=== PATIENT | female | born 1980 | race Caucasian/White ===

== ENCOUNTER → 2022-12-06 08:17 | Outpatient (CLI) | payer BC, SELFPAY ==
[2022-12-06 18:01] LABS: Thyroid Stimulating Hormone 0.99 uIU/mL (0.465-4.68)
== END ==
LOC: LAB.DROPOF 12-07 08:17
PROVIDERS: PCP Nurse Practitioner Family; Visit Provider Nurse Practitioner Family
DX: E03.9 Hypothyroidism, unspecified (principal); E66.9 Obesity, unspecified; Z68.41 Body mass index [BMI] 40.0-44.9, adult
CPT/HCPCS: 84443

== ENCOUNTER 2022-12-10 09:33 | Emergency (ER) | payer BC, SELFPAY ==
[2022-12-10 09:40] VITALS: BP 144/95; PULSE 76; RESP 20; TEMP 36.7; O2SAT 97; BMI 42.5
[2022-12-10 09:58] VITALS: BP 144/95; PULSE 76; RESP 20; TEMP 36.7; O2SAT 97
--- NOTE | 2022-12-10 10:12 | EXP.UTC ---
Discharge Plan Disposition Patient Disposition: Left Against Medical Advice Condition: Fair Prescriptions Prescriptions: No Action omeprazole 20 mg capsule,delayed release(DR/EC) 20 mg PO DAILY Qty: 30 2RF levothyroxine 100 mcg tablet 100 mcg PO DAILY 30 Days Qty: 30 1RF phentermine [Adipex-P] 37.5 mg tablet 37.5 mg PO DAILY Rx Instructions: must administer 30 minutes before or 1-2 hours after breakfast Clinical Impressions Clinical Impression: Left against medical advice Discharge ED Provider: Tfifany Lo [facility] [place] HPI General Stated complaint: upper abd pain Mode of Arrival: Ambulatory Source of Information: Patient Limitations: No Limitations Time Seen by Provider: 12/10/22 09:45 Description of Symptoms (Recalled from Triage Doc. by RN): PATIENT C/O PAIN TO BILATERAL RUQ THAT'S BEEN GOING ON FOR A FEW MONTHS. SHE STATES HER PCP STARTED HER ON OMEPRAZOLE BUT IT HAS NOT HELPED. SHE STATES THAT HER PCP SENT HER HERE TODAY FOR FURTHER WORKUP/IMAGING HEENT Symptoms (Recalled from RN notes): No Resp Symptoms (Recalled from RN notes): No Skin Symptoms (Recalled from RN notes): No MS Symptoms (Recalled from RN notes): No Functional Status (Recalled from RN notes): WNL History of Present Illness Provider Complaint: Patient states she has been having pain across her upper abdomen for several months States that she has seen her PCP several times and seen somewhere else that did an XRay States that they first thought it may be pancreatitis but her labs was normal, after the xray thought it may have been Diverticulitis but the pain went away and just recently started again and her PCP started her on Omeprazole that she has not been taking regularly due to she does not think it is an ulcer so last night the pain got worse and she called her PCP office and they told her to go to the ER for evaluation and imaging Related Data Home Medications Medication Instructions Recorded Confirmed phentermine 37.5 mg tablet 37.5 mg PO DAILY Weight Loss 12/10/22 12/10/22 (Adipex-P) Previous Rx's Medication Instructions Recorded levothyroxine 100 mcg tablet 100 mcg PO DAILY hypothyroidism 30 07/18/22 days #30 tabs omeprazole 20 mg capsule,delayed 20 mg PO DAILY GERD #30 caps 11/15/22 release Allergies Allergy/AdvReac Type Severity Reaction Status Date / Time sertraline AdvReac increased Verified 12/06/22 13:21 anxiety Worker's Comp Is this a Worker's Comp case?: No [facility] Disclaimer: The information contained in this section may have been updated after the patient was seen, as this information can be updated by other users. Medical History Fatty liver Hypothyroid Neck pain with history of cervical spinal surgery No significant past medical history Obesity Surgical History H/O shoulder surgery H/O spinal fusion History of appendectomy History of cholecystectomy Family History Grandmother Coronary artery disease Social History Smoking Status: Current every day smoker tobacco type: e-cigarettes alcohol intake: current substance use type: denies use current occupational status: employed Travel in the last 8 weeks: Inside the [place] household members: spouse and children housing: house ROS Obtained: Yes All systems reviewed & no additional complaints except as documented and Yes Systems reviewed as appropriate & no additional complaints except as documented Constitutional Constitutional: Reports system reviewed and no additional complaints, except as documented and Reports as per HPI Cardiovascular Cardiovascular: Reports system reviewed and no additional complaints, except as documented Respiratory Respiratory: Reports system reviewed and no additional complaints
== END 2022-12-10 10:00 | disposition left against medical advice (07) ==
PROVIDERS: Emergency Provider Nurse Practitioner; PCP Family Medicine
DX: R10.30 Lower abdominal pain, unspecified (principal); F17.290 Nicotine dependence, other tobacco product, uncomplicated; E03.9 Hypothyroidism, unspecified; E66.9 Obesity, unspecified; K76.0 Fatty (change of) liver, not elsewhere classified
CPT/HCPCS: 99211; G0463

== ENCOUNTER 2024-10-14 15:38 | Outpatient (CLI) | payer BC, SELFPAY ==
[2024-10-14 17:35] LABS: Hematocrit 39.5 % (37.0-47.0); Hemoglobin 13.9 g/dL (12.2-16.2); Immature Granulocytes % 0.2 %; Mean Corpuscular HGB Conc 35.2 g/dL (31.8-35.4); Mean Corpuscular Hemoglobin 31.2 pg (27.0-31.2); Mean Corpuscular Volume 88.6 fl (81-99); Nucleated Red Blood Cells % 0 %; Platelet Count 247 K/mm3 (142-424); Red Blood Count 4.46 M/mm3 (4.20-5.40); Red Cell Distribution Width-SD 37.2 fL; White Blood Count 6.6 K/mm3 (4.8-10.8)
[2024-10-14 18:15] LABS: Albumin Level 4.1 g/dl (3.5-5.0); Chloride 107 mmol/L (98-107); Potassium 3.7 mmoL/L (3.5-5.1); Sodium 137 mmol/L (136-145)
[2024-10-14 18:17] LABS: Blood Urea Nitrogen 12 mg/dl (7-17); Creatinine,Serum 0.70 mg/dl (0.52-1.04); Estimated Glomerular Filt Rate 90 ml/min (>60); GFR (African American) 109 ML/MIN (>60)
[2024-10-14 18:18] LABS: Alanine Aminotransferase 17 U/L (12-78); Albumin/Globulin Ratio 1.5 (1.1-1.8); Alkaline Phosphatase 65 U/L (38-126); Anion Gap 7.7 mEq/L (5-15); Aspartate Amino Transferase 26 U/L (14-36); Bilirubin,Total 0.5 mg/dl (0.2-1.3); Calcium 9.3 mg/dl (8.4-10.2); Carbon Dioxide 26 mmol/L (22.0-30.0); Globulin 2.7 g/dL (1.3-3.2); Glucose 102 mg/dl (74-100); Total Protein,Serum 6.8 g/dl (6.3-8.2)
[2024-10-14 18:24] LABS: C-Reactive Protein 1.0 mg/L (0-4)
[2024-10-14 19:04] LABS: 25-OH Vitamin D, Total 21.5 ng/mL (30-100)
[2024-10-14 19:07] LABS: Vitamin B12 314 pg/mL (239-931)
[2024-10-14 19:10] LABS: Triiodothryronine (T3) Uptake 34 % (23.5-40.5)
[2024-10-14 19:11] LABS: Free Thyroxine Index 3.0 ug/dL (5.93-13.13); T4 (Thyroxine) 8.7 ug/dl (5.53-11.0)
[2024-10-14 19:24] LABS: Thyroid Stimulating Hormone 1.99 uIU/mL (0.465-4.68)
--- OUTSIDE RECORDS SUMMARY | 2024-10-19 10:27 | XMS_ITS | Referral Summary ---
Author Organization [employer] ([place], [place], [place], [place]) Address [address] [place] [address] Care Team Providers Care Melter Supervisor Electric Arc Furnace Name Role Phone Pancho Lancaster MD Primary Care Provider [phone] Allergies Active Allergy Reactions Criticality Noted Date Comments Sertraline Anxiety Low 04/08/2017 palpitations Medications DULoxetine (CYMBALTA) 20 MG capsule Take 1 capsule (20 mg total) by mouth daily. 07/20/2022 Active levothyroxine (SYNTHROID, LEVOTHROID) 100 MCG tablet Take 1 tablet (100 mcg total) by mouth daily. 06/04/2023 Active Active Problems Problem Noted Date Diagnosed Date Greater trochanteric bursitis of left hip 2023 Sacroiliitis (HCC), Left 07/29/2023 Facet arthropathy, lumbar 07/29/2023 Femoral acetabular impingement, Left 07/29/2023 Social History Tobacco Use Types Packs/Day Years Used Date Smoking Tobacco: Every Day Smokeless Tobacco: Never Tobacco Cessation:Ready to Q uit: Not Asked; Counseling Given: Not Answered Comments:Pt vapes Passive Exposure Comments:vape Alcohol Use Standard Drinks/Week Comments Not Currently 0 (1 standard drink = 0.6 oz pur e alcohol) Family and Community Support Answer Mayo e Recorded Help with Day to Day Activities Not on file 03/08/2023 Feeling Lonely or Isolated Not on file 03/08 Educational Attainment Answer Date Evelio rded Speak language other than Tamazight at home Not on file 03/08/2023 Want help with school or training Not on file 03/08/2023 Substance Use Answer Date Recorded Used prescription meds for non-medical reasons N ot on file 03/08/2023 Used illegal drugs past 12 months Not on file 03/08/2023 Comments No Sex and Gender Information Value Date Recorded Sex Assigned at Not on file Legal Sex Female 12:33 PM CDT Gender Identity Not on file Sexual Orientation Not on file Last Filed Vital Signs Vital Sign Reading Time Taken Comments Blood Pressure 143/65 02/15/2024 9:21 AM EST Pulse 80 02/15/2024 9:21 AM EST Temperature 36.4 C (97.6 F) 02/15/2024 6:23 AM EST Respiratory Rate 16 02/15/2024 9:21 AM EST Oxygen Saturation 96% 02/15/2024 9:21 AM EST Inhaled Oxygen Concentration - - Weight 115.7 kg (255 lb) 02/15/2024 6:23 AM EST Height 167.6 cm (5' 6 ) 02/15/2024 6:23 AM EST Body Mass Index 41.16 02/15/2024 6:23 AM EST Plan of Treatment Not on file Insurance [id number] (Home) [address] [place] [id number] [facility] Care Teams Melter Supervisor Electric Arc Furnace Relationship Specialty Start Date End Date Pancho Lancaster MD [address] [place] [address] PCP - General Family Medicine 12/11/22
--- OUTSIDE RECORDS SUMMARY | 2024-10-19 10:27 | XMS_ITS | Clinical Summary ---
Author Organization [facility] Address [address] [id number] Care Team Providers Care Regional Marketing Manager Name Role Phone Natasha Nick Primary Care Provider [phone] Allergies Active Allergy Reactions Criticality Noted Date Comments Sertraline Anxiety Low 04/08/2017 palpitations palpitations palpitations Medications levothyroxine (SYNTHROID, LEVOTHROID) 100 MCG tablet Take 1 tablet by mouth Daily. Active phentermine (ADIPEX-P) 37.5 MG tablet TAKE 1 TABLET BY MOUTH EVERY DAY ADMINISTER 30 MINUTES BEFORE OR 1-2 HOURS AFTER BREAKFAST 4 Active Social History Tobacco Use Types Packs/Day Years Used Date Smoking Tobacco: Former Cigarettes 0.5 15 Tobacco Cessation:Counseling Given: Not Answered Alcohol Use Standard Drinks/Week Comments Yes 0 (1 standard drink = 0.6 oz pur e alcohol) Socially Comments Unknown Sex and Gender Information Value Date Recorded Sex Assigned at Not on file Legal Sex Female 1:36 PM EDT Gender Identity Not on file Sexual Orientation Not on file Last Filed Vital Signs Vital Sign Reading Time Taken Comments Blood Pressure - - Pulse - - Temperature 35.8 C (96.5 F) 01/08/2024 8:56 AM EST Respiratory Rate - - Oxygen Saturation - - Inhaled Oxygen Concentration - - Weight - - Height - - Body Mass Index - - Plan of Treatment Health Maintenance Due Date Last Done Comments Annual Gynecologic Pelvic and Breast Exam 1978 PAP SMEAR 09/08/1999 MAMMOGRAM 09/02/2020 09/02/2018 ANNUAL PHYSICAL 08/28/2023 HEPATITIS C SCREENING 08/28/2023 COLOGUARD 09/08/2023 COLON CANCER SCREENING 5 YEAR SIGMOIDOSCOPY 09/08/2023 COLONOSCOPY 09/08/2023 COLORECTAL CANCER SCREENING 09/08/2023 CT COLONOGRAPHY 09/08/2023 FECAL OCCULT BLOOD TEST 09/08/2023 FIT Testing (1 year) 09/08/2023 COVID-19 Vaccine ( season) 2023 06/21/2021, 07/10/2020, 06/19/2020 INFLUENZA VACCINE 11/17/2024 11/15/2022, , 12/28/2018, Additional history exists TDAP/TD VACCINES (3 - Td or Tdap) 07/29/2032 07/29/2022, 12/07/2015, 04/20/2003 Pneumococcal Vaccine 0-49 Aged Out No longer eligible based on patient's age to complete this topic Insurance PPO Care Teams Regional Marketing Manager Relationship Specialty Start Date End Date Natasha Nick PA [address] [place] [address] [address] [place] [id number] PCP - General Family Medicine 08/14/23
--- OUTSIDE RECORDS SUMMARY | 2024-10-19 10:27 | XMS_ITS | Clinical Summary ---
Author Organization [employer] ([place], [place], [place], [place]) Address [address] [place] [address] Care Team Providers Care Reverse Unit Operator Name Role Phone Pancho Lancaster MD Primary Care Provider [phone] Allergies Active Allergy Reactions Criticality Noted Date [...] Date Evelio rded Speak language other than Romanian at home Not on file 03/08/2023 Want [...] 02/15/2024 6:23 AM EST Plan of Treatment Health Maintenance Due Date Last Done Comments CT Colonography 1978 Colonoscopy 1978 Colorectal Cancer Screening 1978 FOBT/FIT 1978 Fit-DNA (Cologuard) 1978 Sigmoidoscopy 1978 Depression Screening (12+) 1990 Tobacco Cessation Counseling and Screening (12+) 1990 HIV Screening 1993 Hepatitis C Screening 1996 Pneumococcal Vaccine: 0-49 Y ears (1 of 2 - PCV) 1997 Pap Smear 09/08/1999 Breast Cancer Screening 09/02/2020 09/02/2018 COVID-19 VACCINE (5 - 2023-2 5 season) 2023 06/21/2021, 06/21/2021, 06/21/2021, Additional history exists Influenza Vaccine (#1) 2024 Lipid Panel 10/24/2024 10/24/2021 DTAP/TDAP/TD VACCINES (4 - T d or Tdap) 07/29/2032 07/29/2022, 12/07/2015, 04/20/2003 Insurance [employer]UE [employer]OSS/[employer] Care Teams Reverse Unit Operator Relationship Specialty Start Date End Date Pancho Lancaster MD [address] [place] [address] PCP - General Family Medicine 12/11/22
--- OUTSIDE RECORDS SUMMARY | 2024-10-19 10:27 | XMS_ITS | Clinical Summary ---
Author Organization Healthcare Address [facility] [address] [place] [id number] Care Team Providers Care Target Man Name Role Phone Natasha Nick Primary Care Provider Allergies Active Allergy Reactions Criticality Noted Date Comments Sertraline Anxiety Low 04/08/2017 palpitations palpitations Immunizations Immunization Administration Dates Next Due Hep B, adult 11/26/2021,04/20/2003 Influenza, injectable, quadrivalent 12/28/2018,0 03/24/2018 Influenza, injectable, quadr ivalent, preservative free 11/23/2021 Influenza, seasonal, injectable 12/28/2018,03/24,12/18/2016 Moderna COVID-19 Vaccine (Re d Cap) 12+ years 06/21/2021 PPD Skin Test (TB Skin Test) 04/20/2003 [employer] COVID-19 Vac cine (Purple Cap) 12+ 06/21/2021,07/10/2020,06/19/2020 Td (adult), unspecified 04/20/2003 Tdap 07/29/2022,12/07/2015 Social History Tobacco Use Types Packs/Day Years Used Date Smoking Tobacco: Never Assessed Comments Unknown Sex and Gender Information Value Date Recorded Sex Assigned at Not on file Legal Sex Female 1:37 PM EDT Gender Identity Not on file Sexual Orientation Not on file Plan of Treatment Health Maintenance Due Date Last Done Comments [facility]-Depression Screening 1978 [facility]-Infant/Child/Adol SDOH Screenings 1978 [facility]- SDOH Screenings 1996 [facility]-Adult SDOH Screenings 1996 [facility]-Pap Smear 09/08/1999 [facility]-Cervical Cancer Screening 2008 [facility]-HPV/Cotest 2008 [facility]-Hepatitis B Vaccines (3 of 3 - 19+ 3-dose series) 01/21/2022 11/26/2021, 04/20/2003 CT Colonography 09/08/2023 Colonoscopy 09/08/2023 FIT-DNA 09/08/2023 FIT 09/08/2023 FOBT 09/08/2023 Sigmoidoscopy 09/08/2023 [facility]-Colorectal Cancer Screening 09/08/2023 [id number] Vaccine (2023- season) 2023 06/21/2021, 06/21/2021, 07/10/2020, Additional history exists [facility]-Influenza Vaccine (#1) 10/18/202411/23, 12/28/2018, 12/28/2018, Additional history exists [facility]-Zoster Vaccines (1 of 2) 2028 [facility]-DTaP,Tdap,and Td Vaccines (3 - Td or Tdap) 07/29/2032 07/29/2022, 12/07/2015, 04/20/2003 HPV Vaccines Aged Out No longer eligi ble based on patient's age to complete this topic [facility]-HIB Vaccines Aged Out No longer e ligible based on patient's age to complete this topic [facility]-Hepatitis A Vaccines Aged Out No longer eligible based on patient's age to complete this topic [facility]-IPV Vaccines Aged Out No longer e ligible based on patient's age to complete this topic [facility]-Pneumococcal Vaccine: Pediatrics (0 to 5 Years) and At-Risk Patients (6 to 49 Years) Aged Out No longer eligible based on patient's age to complete this topic [facility]-Rotavirus Vaccines Aged Out No lo nger eligible based on patient's age to complete this topic Insurance MEME Care Teams Target Man Relationship Specialty Start Date End Date Natasha Nick PA [address] [place] [id number] PCP - General 05/22/22
== END 2024-10-14 23:59 ==
LOC: LAB.DROPOF 10-19 09:53
PROVIDERS: PCP Nurse Practitioner Family; Visit Provider Nurse Practitioner Family
DX: E03.9 Hypothyroidism, unspecified (principal); R53.83 Other fatigue
CPT/HCPCS: 80053; 82306; 82607; 84436; 84443; 84479; 85025; 86140

== ENCOUNTER 2024-10-26 15:01 | Outpatient (CLI) | payer BC, SELFPAY ==
--- OUTSIDE RECORDS SUMMARY | 2024-10-26 15:05 | XMS_ITS | Clinical Summary ---
Author Organization Healthcare Address [facility] [place] [id number] Care Team Providers Care Teletype Mechanic Name Role Phone Natasha Nick Primary Care Provider [phone] Allergies Active Allergy Reactions Criticality Noted Date Comments Sertraline Anxiety Low 04/08/2017 palpitations palpitations Immunizations Immunization Administration Dates Next Due Hep B, adult 11/26/2021,04/20/2003 Influenza, injectable, quadrivalent 12/28/2018,0 03/24/2018 Influenza, injectable, quadr ivalent, preservative free 11/23/2021 Influenza, seasonal, injectable 12/28/2018,03/24,12/18/2016 Moderna COVID-19 Vaccine (Re d Cap) 12+ years 06/21/2021 PPD Skin Test (TB Skin Test) 04/20/2003 [employer] COVID-19 Vac cine (Purple Cap) 12+ 06/21/2021,07/10/2020,06/19/2020 [...] 09/08/2023 Sigmoidoscopy 09/08/2023 [facility]-Colorectal Cancer Screening 09/08/2023 [id number] Vaccine (2023- season) 2023 06/21/2021, 06/21/2021, 07/10/2020, [...] complete this topic Insurance MEME Care Teams Teletype Mechanic Relationship Specialty Start Date End Date Natasha Nick PA [address] [place] [id number] PCP - General 05/22/22
--- OUTSIDE RECORDS SUMMARY | 2024-10-26 15:05 | XMS_ITS | Clinical Summary ---
Author Organization [facility] Address [address] [place] [address] Care Team Providers Care Automation Test Engineer Name Role Phone Natasha Nick Primary Care Provider [phone] Allergies Active Allergy Reactions Criticality Noted Date [...] Mass Index - - Plan of Treatment Upcoming Encounters Date Type Department Care Team (Late st Contact Info) Description 11/23/2024 11:15 AM EDT Office Visit [facility] [address] [place] [phone] Adriana Blackburn APRN [address] [place] [address] Health Maintenance Due Date Last Done Comments Annual Gynecologic Pelvic and Breast Exam 1978 PAP SMEAR 09/08/1999 MAMMOGRAM 09/02/2020 09/02/2018 ANNUAL PHYSICAL 08/28/2023 HEPATITIS C SCREENING 08/28/2023 COLOGUARD 09/08/2023 COLON CANCER SCREENING 5 YEAR SIGMOIDOSCOPY 09/08/2023 COLONOSCOPY 09/08/2023 COLORECTAL CANCER SCREENING 09/08/2023 CT COLONOGRAPHY 09/08/2023 FECAL OCCULT BLOOD TEST 09/08/2023 FIT Testing (1 year) 09/08/2023 COVID-19 Vaccine ( season) 2024 06/21/2021, 07/10/2020, 06/19/2020 INFLUENZA VACCINE 11/17/2024 11/15/2022, , 12/28/2018, Additional history exists TDAP/TD VACCINES (3 - Td or Tdap) 07/29/2032 07/29/2022, 12/07/2015, 04/20/2003 Pneumococcal Vaccine 0-49 Aged Out No longer eligible based on patient's age to complete this topic Procedures Procedure Name Priority Date/Time Associated Diagnosis Comments SCANNED - LABS 10/14/2024 from Last 3 Months Results * LABS SCANNED (10/14/2024) Pearl Herrera MD LAB BLOOD ORDERABLES Final R esult from Last 3 Months Insurance PPO Care Teams Automation Test Engineer Relationship Specialty Start Date End Date Natasha Nick PA [facility] [place] [address] PCP - General Family Medicine 08/14/23
--- NOTE | 2024-10-26 15:15 | MM_ITS ---
PROCEDURE INFORMATION: Exam: MG Bilateral Screening 3D Mammography Exam date and time: 10/26/2024 3:14 PM Age: 44 years old Clinical indication: Screening examination TECHNIQUE: Imaging protocol: Bilateral Screening tomosynthesis and 2D mammography including computer-aided detection (CAD) when performed. COMPARISON: No relevant prior studies available. FINDINGS: MAMMOGRAPHY: Breast composition: There are scattered areas of fibroglandular density. Mass: None. Architectural distortion: None. Calcifications: No suspicious calcifications. Asymmetric density: None. Skin thickening: None. Axillary adenopathy: None. IMPRESSION: No mammographic evidence of malignancy. Annual screening is recommended unless otherwise clinically indicated. ASSESSMENT: BI-RADS Category 1: Negative.
== END 2024-10-26 23:59 | disposition home or self-care (01) ==
LOC: RAD 15:02
PROVIDERS: PCP Family Medicine; Visit Provider Nurse Practitioner Family
DX: Z12.31 Encounter for screening mammogram for malignant neoplasm of breast (principal); R92.323 Mammographic fibroglandular density, bilateral breasts
CPT/HCPCS: 77063; 77067

== ENCOUNTER 2024-11-01 14:50 | Outpatient (CLI) | payer BC, SELFPAY ==
--- OUTSIDE RECORDS SUMMARY | 2024-11-01 14:56 | XMS_ITS | Clinical Summary ---
Author Organization [facility] Address [address] [place] [address] Care Team Providers Care Social Work Administrator Name Role Phone Natasha Nick Primary Care Provider [phone] Allergies Active Allergy Reactions Criticality Noted Date [...] Care Team (Late st Contact Info) Description 12/08/2024 2:00 PM EDT Office Visit [facility] [address] [place] [address] Adriana Blackburn, MICH [address] [place] [address] Health Maintenance Due Date Last [...] Last 3 Months Insurance PPO Care Teams Social Work Administrator Relationship Specialty Start Date End Date Natasha Nick PA [facility] [place] [address] PCP - General Family Medicine 08/14/23
--- OUTSIDE RECORDS SUMMARY | 2024-11-01 14:56 | XMS_ITS | Referral Summary ---
Author Organization [employer] ([place], [place], [place], [place]) Address [address] [place] [address] Care Team Providers Care Corn Cutter Name Role Phone Pancho Lancaster MD Primary Care Provider [phone] Allergies Active Allergy Reactions Criticality Noted Date [...] Date Evelio rded Speak language other than Indonesian at home Not on file 03/08/2023 Want [...] Plan of Treatment Not on file Insurance [id number] (Home) [address] [place] [id number] [facility]/[employer] Care Teams Corn Cutter Relationship Specialty Start Date End Date Pancho Lacnaster MD [address] [place] [address] PCP - General Family Medicine 12/11/22
--- OUTSIDE RECORDS SUMMARY | 2024-11-01 14:56 | XMS_ITS | Clinical Summary ---
Author Organization [employer] ([place], [place], [place], [place]) Address [address] [place] [address] Care Team Providers Care Boiler Assistant Operator Name Role Phone Pancho Lancaster MD Primary Care Provider [phone] Allergies Active Allergy Reactions Criticality Noted Date [...] Date Evelio rded Speak language other than Macanese at home Not on file 03/08/2023 Want [...] Screening 09/02/2020 09/02/2018 COVID-19 VACCINE (5 - 2024-2 6 season) 2024 06/21/2021, 06/21/2021, 06/21/2021, Additional history exists Influenza Vaccine (#1) 2024 Lipid Panel 10/24/2024 10/24/2021 DTAP/TDAP/TD VACCINES (4 - T d or Tdap) 07/29/2032 07/29/2022, 12/07/2015, 04/20/2003 Insurance BLUE CROSS/[employer]UE [employer]IELD Care Teams Boiler Assistant Operator Relationship Specialty Start Date End Date Pancho Lancaster MD [address] [place] [address] PCP - General Family Medicine 12/11/22
--- OUTSIDE RECORDS SUMMARY | 2024-11-01 14:56 | XMS_ITS | Clinical Summary ---
Author Organization Healthcare Address [facility] [address] [place] [id number] Care Team Providers Care Cracking Still Operator Name Role Phone Natasha Nick Primary Care [...] PPD Skin Test (TB Skin Test) 04/20/2003 [employer] [facility] COVID-19 Vac cine (Purple Cap) 12+ 06/21/2021,07/10/2020,06/19/2020 [...] Date Last Done Comments [facility]-Depression Screening 1978 [facility]-/Child/Adol SDOH Screenings 1978 [facility]- SDOH Screenings 1996 [facility]-Adult SDOH Screenings 1996 [facility]-Pap Smear 09/08/1999 [facility]-Cervical Cancer Screening 2008 [facility]-HPV/Cotest 2008 [facility]-Hepatitis B Vaccines (3 of 3 - 19+ 3-dose series) 01/21/2022 11/26/2021, 04/20/2003 CT Colonography 09/08/2023 Colonoscopy 09/08/2023 FIT-DNA 09/08/2023 FIT 09/08/2023 FOBT 09/08/2023 Sigmoidoscopy 09/08/2023 [facility]-Colorectal Cancer Screening 09/08/2023 [id number] Vaccine ( season) 2024 06/21/2021, 06/21/2021, 07/10/2020, Additional history exists [facility]-Influenza [...] complete this topic Insurance MEME Care Teams Cracking Still Operator Relationship Specialty Start Date End Date Natasha Nick PA [address] [place] [id number] PCP - General 05/22/22
== END 2024-11-01 23:59 | disposition home or self-care (01) ==
LOC: RT 14:52
PROVIDERS: PCP Family Medicine; Visit Provider Nurse Practitioner
DX: I49.3 Ventricular premature depolarization (principal); I49.1 Atrial premature depolarization; R60.9 Edema, unspecified; R53.83 Other fatigue
CPT/HCPCS: 93270

== ENCOUNTER 2024-11-18 10:25 | Outpatient (CLI) | payer BC, SELFPAY ==
--- OUTSIDE RECORDS SUMMARY | 2024-11-18 10:28 | XMS_ITS | Clinical Summary ---
Author Organization Healthcare Address [facility] [place] [id number] Care Team Providers Care Executive Officer Name Role Phone Natasha Nick Primary Care Provider [phone] Allergies Active Allergy Reactions Criticality Noted Date Comments Sertraline Anxiety Low 04/08/2017 palpitations palpitations Immunizations Immunization Administration Dates Next Due Hep B, adult 11/26/2021,04/20/2003 Influenza, injectable, quadrivalent 12/28/2018,0 03/24/2018 Influenza, injectable, quadr ivalent, preservative free 11/23/2021 Influenza, seasonal, injectable 12/28/2018,03/24,12/18/2016 Moderna COVID-19 Vaccine (Re d Cap) 12+ years 06/21/2021 PPD Skin Test (TB Skin Test) 04/20/2003 [facility] COVID-19 Vac cine (Purple Cap) 12+ 06/21/2021,07/10/2020,06/19/2020 [...] 09/08/2023 Sigmoidoscopy 09/08/2023 [facility]-Colorectal Cancer Screening 09/08/2023 [id number] Vaccine ( season) 2024 06/21/2021, 06/21/2021, 07/10/2020, [...] complete this topic Insurance MEME Care Teams Executive Officer Relationship Specialty Start Date End Date Natahsa Nick PA [address] [place] [id number] PCP - General 05/22/22
--- OUTSIDE RECORDS SUMMARY | 2024-11-18 10:28 | XMS_ITS | Clinical Summary ---
Author Organization [facility] Address [address] [place] [address] Care Team Providers Care Predictive Maintenance Specialist Name Role Phone Natasha Nick Primary Care Provider [phone] Allergies Active Allergy Reactions Criticality Noted Date [...] Description 12/08/2024 2:00 PM EDT Office Visit [facility] [address] [place] [phone] Adriana Blackburn, [place] [address] [place] [id number] Health Maintenance Due Date Last Done Comments Annual Gynecologic Pelvic and Breast Exam 1980 PAP SMEAR 09/08/1999 MAMMOGRAM 09/02/2020 09/02/2018 ANNUAL PHYSICAL 08/28/2023 HEPATITIS C SCREENING 08/28/2023 COLOGUARD 09/08/2023 COLON CANCER SCREENING 5 YEAR SIGMOIDOSCOPY 09/08/2023 COLONOSCOPY 09/08/2023 COLORECTAL CANCER SCREENING 09/08/2023 CT COLONOGRAPHY 09/08/2023 FECAL OCCULT BLOOD TEST 09/08/2023 FIT Testing (1 year) 09/08/2023 INFLUENZA VACCINE 09/17/2024 11/15/2022, , 12/28/2018, Additional history exists TDAP/TD VACCINES (3 - Td or Tdap) 07/29/2032 07/29/2022, 12/07/2015, 04/20/2003 Pneumococcal Vaccine 0-49 Aged Out No longer eligible based on patient's age to complete this topic Procedures Procedure Name Priority Date/Time Associated Diagnosis Comments SCANNED - LABS 10/14/2024 from Last 3 Months Results * LABS SCANNED (10/14/2024) us Pearl Herrera MD LAB BLOOD ORDERABLES Final R esult from Last 3 Months Insurance PPO Care Teams Predictive Maintenance Specialist Relationship Specialty Start Date End Date Natasha Nick PA [address] [place] [address] [place] [id number] PCP - General Family Medicine 08/14/23
--- NOTE | 2024-11-18 11:15 | CA_ITS ---
APPROVED REPORT EXAM: Comprehensive 2D, Doppler, and color-flow Echocardiogram Public Safety Teacher: Lisa Bray RVT Ht: 5 ft 6 in Wt: 266lbs BSA: 2.26 BP: 143/83 mmHg Indications: CHEST PAIN,EDEMA 2D Dimensions LA Volume 28.50 mL LA Volume Index 12.61 mL/m2 (M/F) 16-34 M-Mode Dimensions RVDd 2.61 cm (0.9-2.6) LA Diam 3.26 cm (1.9-4.0) LVDd 5.01 cm (3.5-5.7) LVDs 3.36 cm (3.5-5.7) IVSd 0.46 cm (0.6-1.1) PWd 0.54 cm (0.6-1.1) EF (Teich) 61.20% FS 32.90% EDV (Teich) 118.80 mL TAPSE 2.42 (<1.7) ESV (Teich) 46.10 mL LV Diastology E Decel Time 213 (160-240 msec) E/A Ratio 1.4 Aortic Valve ELIAS Index 1.45 cm2/m2 AoV Peak Arden. 115.0 (50-130 cm/s) AO Peak GR. 5.30 mmHg AO Mean GR. 3.00 (<5 mmHg) AO VTI 20.6 (18-25 cm) ELIAS (VTI) 3.34 (2.5-4.5 cm2) Mitral Valve MV E Max Arden. 92.0 (40-130 cm/s) MV A Velocity 67.0 (40-130 cm/s) E/A Ratio 1.38 MV PHT 62.0 ms Pulmonary Valve PV Peak Velocity 76.0 (50-150 cm/s) Left Ventricle The left ventricle is normal size. Left ventricular systolic function is normal. The left ventricular ejection fraction is within the normal range. There is normal left ventricular wall thickness. There is normal LV segmental wall motion. The left ventricular diastolic function is normal. LVEF is 55% Right Ventricle The right ventricle is normal size. The right ventricular systolic function is normal. Atria The left atrium size is normal. The right atrium size is normal. There is no color Doppler evidence of interatrial shunt. Aortic Valve The aortic valve opens well. There is no hemodynamically significant aortic valvular stenosis. No aortic regurgitation is present. Mitral Valve The mitral valve is normal in structure. No evidence of mitral valve stenosis. Trace mitral regurgitation is present. Tricuspid Valve The tricuspid valve leaflets are thin and pliable. Trace tricuspid regurgitation. There is insufficient TR jet to estimate RVSP. Pulmonic Valve The pulmonary valve is grossly normal in structure. Trace pulmonic valve regurgitation is present. Great Vessels The aortic root is normal in size. IVC is normal in size and collapses >50% with inspiration. Pericardium There is no pericardial effusion. Other Information Study Quality: Adequate Conclusion Normal biventricular systolic function. No significant valvular stenosis or regurgitation. Electronically signed by : Carlee Nicole MD 11/20/2024 23:17:01
== END 2024-11-18 23:59 | disposition home or self-care (01) ==
LOC: RT 10:26
PROVIDERS: PCP Family Medicine; Visit Provider Nurse Practitioner
DX: I49.3 Ventricular premature depolarization (principal); R60.9 Edema, unspecified; R53.83 Other fatigue
CPT/HCPCS: 93306

== ENCOUNTER → 2025-01-05 07:41 | Outpatient (CLI) | payer BC, SELFPAY ==
--- OUTSIDE RECORDS SUMMARY | 2024-11-07 22:03 | XMS_ITS | Encounter Summary ---
Author Organization [employer] ([place], [place], [place], [place], [place]) Address [address] [place] [address] Care Team Providers Care Build Engineer Name Role Phone Pancho Lancaster MD Primary Care Provider [phone] Reason for Visit * Reason Comments Chest Pain Pt presents with blayne st pain that began around two weeks ago when her provider discontinued her thyroid medication. She has since experienced dizziness, hot and cold flashes, epigastric pain, palpitation and headaches. She has also recently started Cymbalta. Encounter Details Date Type Department Care Team (Late st Contact Info) Description 11/07/2024 11:03 PM EDT - 11/08/2024 1:38 AM EDT Emergency [facility] Emergency Department [address] [place] [phone] Michaelle Singh MD [address] [place], [place] [id number] Chest pain, unspecified (Primary Dx); Chest pain, unspecified type Discharge Disposition: Home or Self Care Social History Tobacco Use Types Packs/Day Years Used Date Smoking Tobacco: Every Day Smokeless Tobacco: Never Comments:Pt vapes Passive Exposure Comments:vape Alcohol Use Standard Drinks/Week Comments Not Currently 0 (1 standard drink = 0.6 oz pur e alcohol) Family and Community Support Answer Mayo e Recorded Help with Day to Day Activities Not on file 03/08/2023 Feeling Lonely or Isolated Not on file 03/08 Educational Attainment Answer Date Evelio rded Speak language other than Chinese at home Not on file 03/08/2023 Want [...] on file Sexual Orientation Not on file documented as of this encounter Last Filed Vital Signs Vital Sign Reading Time Taken Comments Blood Pressure 129/72 11/08/2024 1:00 AM EDT Pulse 52 11/08/2024 1:15 AM EDT Temperature 35.7 C (96.3 F) 11/07/2024 11:15 PM EDT Respiratory Rate 10 11/08/2024 1:15 AM EDT Oxygen Saturation 97% 11/08/2024 1:15 AM EDT Inhaled Oxygen Concentration - - Weight 117.9 kg (260 lb) 11/07/2024 11:15 PM EDT Height 167.6 cm (5' 6 ) 11/07/2024 11:15 PM EDT Body Mass Index 41.97 11/07/2024 11:15 PM EDT documented in this encounter Discharge Instructions * Attachments The following attachments cannot be sent through Care Everywhere. * Nonspecific Chest Pain Adult (Chinese) documented in this encounter Medications at Time of Discharge DULoxetine (CYMBALTA) 20 MG capsule Take 1 capsule (20 mg total) by mouth daily. 07/20/2022 hydrOXYzine (ATARAX) 25 MG tablet Take 1 tablet (25 mg total) by mouth every night as needed (sleep) Look-alike/S ound-alike medication. 15 tablet 11/08/2024 levothyroxine (SYNTHROID, LEVOTHROID) 100 MCG tablet Take 1 tablet (100 mcg total) by mouth daily. 06/04/2023 documented as of this encounter ED Notes * Michaelle Singh MD - 11/07/2024 11:18 PM EDT TRIAGE CHIEF COMPLAINT: Nursing and triage notes reviewed Chief Complaint Patient presents with Chest Pain Pt presents with chest pain that began around two weeks ago when her provider discontinued her thyroid medication. She has since experienced dizziness, hot and cold flashes, epigastric pain, palpitation and headaches. She has also recently started Cymbalta. HPI: Estrella Javed is a 44 y.o. female who presents to the emergency department complaining of chest discomfort and feelings of anxiety. Patient states she has had several medication changes recently. She states that a physician took her off of her levothyroxine and she started having some palpitations and anxiety and other new symptoms. She found a new doctor and was restarted on this medication 4 days ago but continues to have some chest discomfort and occasional palpitations. She describes this as feeling like her heart is fluttering. She states it is worse when she tries to go to sleep. She denies pain with breathing. She denies fevers or chills. She has had nausea but denies vomiting. She took Cymbalta last night and states it feels like it made her symptoms worse. REVIEW OF SYSTEMS: All other systems reviewed and are negative PAST MEDICAL HISTORY: Past Medical History: Diagnosis Date Obesity Thyroid disease FAMILY HISTORY: No family history on file. SOCIAL HISTORY: Social History Socioeconomic History Marital status: Spouse name: Not on file Number of children: Not on file Years of education: Not on file Highest education level: Not on file Occupational History Not on file Tobacco Use Smoking status: Every Day Smokeless tobacco: Never Tobacco comments: Pt vapes Substance and Sexual Activity Alcohol use: Not Currently Drug use: Not Currently Sexual activity: Yes Other Topics Concern Not on file Social History Narrative Not on file Social Drivers of Health Financial Resource Strain: Not on file Food Insecurity: Not on file Transportation: Not on file Physical Activity: Not on file Social Connections: Low Risk (03/08/2023) Family and Community Support Help with Day to Day Activities: Not on file Feeling Lonely or Isolated: Not on file SURGICAL HISTORY: Past Surgical History: Procedure Laterality Date APPENDECTOMY CERVICAL FUSION CHOLECYSTECTOMY SHOULDER SURGERY CURRENT MEDICATIONS: Patient's Medications New Prescriptions No medications on file Previous Medications DULOXETINE (CYMBALTA) 20 MG CAPSULE Take 1 capsule (20 mg total) by mouth daily. LEVOTHYROXINE (SYNTHROID, LEVOTHROID) 100 MCG TABLET Take 1 tablet (100 mcg total) by mouth daily. Modified Medications No medications on file Discontinued Medications No medications on file ALLERGIES: Sertraline PHYSICAL EXAM: VITAL SIGNS: Vitals: 11/07/24 2315 BP: (!) 152/85 Pulse: 81 Resp: 14 Temp: 96.3 ??F (35.7 ??C) SpO2: 98% CONSTITUTIONAL: Awake, oriented, appears nontoxic HENT: Atraumatic, normocephalic, oral mucosa pink and moist, airway patent. Nares patent without drainage. External ears normal. EYES: Conjunctivae clear NECK: Trachea midline CARDIOVASCULAR: Normal heart rate, Normal rhythm, No murmurs, rubs, gallops PULMONARY/CHEST: Clear to auscultation, no rhonchi, wheezes, or rales. Symmetrical breath sounds. ABDOMINAL: Nondistended, soft, nontender - no rebound or guarding. NEUROLOGIC: Nonfocal, moving all four extremities, no gross sensory or motor deficits. EXTREMITIES: No clubbing, cyanosis, or edema SKIN: Warm, Dry, No erythema, No rash ED COURSE / MEDICAL DECISION MAKING: Estrella Javed is a 44 y.o. female who presents to the emergency department for evaluation of chest discomfort. Patient is nondistressed on arrival in the emergency department. Vital signs are stable. Physical exam is largely unremarkable. Differential diagnosis includes anxiety, ACS, GERD, medication side effect among other etiologies. Chest x-ray, EKG, CBC, CMP, cardiac enzymes was ordered for further evaluation of the patient's presentation. Diagnostic information from other sources: Chart review Interventions: Vistaril Narrative: Patient presents with chest discomfort. Chest x-ray per my interpretation does not reveal obvious acute cardiopulmonary process. The patient has no pleuritic symptoms, shortness of breath,pain with breathing, and is not tachycardic. She has no risk factors for pulmonary embolism. She isPERC rule negative, given this I do not feel further workup of a PE is currently indicated. The cardiac enzymes were within the normal range. Given her symptoms have been ongoing for multiple days I did not feel repeat cardiac enzymes were currently indicated. Renal function and liver enzymes are appropriate, hemoglobin is within the normal range. She has a calculated heart score of 2, this does place her in a low risk category. Given this I think she is safe for outpatient follow-up. It is very possible the symptoms could be related to recent changes in medication as well. Symptoms are typically worse when she tries to sleep. Will trial Vistaril and see if this helps her symptoms, will have her follow-up as an outpatient with very strict return precautions. I discussed all results with patient and she was comfortable with this plan of care. ED Course as of 11/08/24 0118 Sun Nov 07, 2024 2324 EKG interpreted by me shows sinus rhythm with rate of 62 bpm. There are few nonspecific findings but no acute ischemic changes. This is an atypical appearing EKG. [TB] 2355 Chest x-ray per my interpretation does not show obvious acute cardiopulmonary process. [TB] ED Course User Index [TB] Michaelle Singh MD Procedures DECISION TO DISCHARGE/ADMIT: see ED care timeline FINAL IMPRESSION: 1 --chest pain 2 -- 3 -- Electronically signed by: Michaelle Singh MD, 11/07/2024 11:19 PM Michaelle Singh MD 11/08/24121 documented in this encounter Plan of Treatment Not on file documented as of this encounter Procedures Procedure Name Priority Date/Time Associated Diagnosis Comments FOLLICLE STIMULATING HORMONE(SENDOUT) STAT 11/08/2024 4:56 PM EDT [place] RED TOP (EXTRA TUBES) STAT 11/07/2024 11:48 PM EDT [place] BLUE TOP (EXTRA TUBES) STAT 11/07/2024 11:48 PM EDT [place] EXTRA TUBES STAT 11/07/2024 11:48 PM EDT CBC W/ AUTO DIFF STAT 11/07/2024 11:4 8 PM EDT HIGH SENSITIVITY TROPONIN I STAT 11/07/2024 11:48 PM EDT PROBNP STAT 11/07/2024 11:48 PM EDT MAGNESIUM STAT 11/07/2024 11:48 PM EDT LIPASE STAT 11/07/2024 11:48 PM EDT COMPREHENSIVE METABOLIC PANEL STAT 11/07/2024 11:48 PM EDT XR CHEST 1 VIEW PORTABLE / BEDSIDE STAT 11/07/2024 11:34 PM EDT FS_MODEL_IP_ECG 12-LEAD STAT 11/07/2024 11:11 PM EDT documented in this encounter Results * FOLLICLE STIMULATING HORMONE(SENDOUT) (11/08/2024 4:56 PM EDT) Follicle Stimulating Hormone 9.6 IU/L 11/11/2024 3:25 AM EDT [facility] Comment: INTERPRETIVE INFORMATION: Follicle Stimulating Hormone Females: Follicular: 3.5-12.5 IU/L Mid-Cycle: 4.7-21.5 IU/L Luteal: 1.7-7.7 IU/L Postmenopausal: 25.8-134.8 IU/L REFERENCE INTERVAL: Follicle Stimulating Hormone Access complete set of age- and/or gender-specific reference intervals for this test in the [facility] Directory ([employer]). Performed By: [facility] [address] [place] [address] Medical Specialist: Louie Olsen MD, PhD CLIA Number: [id number] Blood Venipuncture / Unknown 11/08/2024 4:56 PM EDT 11/08/2024 4:56 PM EDT Pancho Lancaster MD LAB BLOOD ORDERABLES Final Result [facility] [address] [place] [address], [facility] [phone] * Magnesium (11/07/2024 11:48 PM EDT) Magnesium 1.8 1.8 - 2.4 mg/dL 11/08/2024 12:39 AM EDT [facility] Blood Venipuncture / Unknown 11/07/2024 11:48 PM EDT 11/07/2024 11:52 PM EDT us Michaelle Singh MD LAB BLOOD ORDERABLES Final Res ult [facility] [address] [place] [address] * PROBNP (11/07/2024 11:48 PM EDT) ProBNP (pg/mL) 117 5 - 125 pg/mL 11/08/2024 12:39 AM EDT [facility] Blood Venipuncture / Unknown 11/07/2024 11:48 PM EDT 11/07/2024 11:52 PM EDT Narrative [facility] - 11/08/2024 12:39 AM EDT Biotin supplements can cause clinically significant incorrect lab test results. The FDA has seen an increase in the number of reported adverse events related to biotin interference with lab tests. us Michaelle Sinhg MD LAB BLOOD ORDERABLES Final Res ult Performing Organization Address [facility] Co de Phone Number [facility] [address] [place] [address] * Red Top Extra Tubes (11/07/2024 11:48 PM EDT) HOLD SPECIMEN (SJ - BKR) Hold for add-ons. 11/08/2024 1:01 AM EDT [facility] Comment:Auto resulted. Blood (Blood, Veinous) Venipuncture / Unknown 11/07/2024 11:48 PM EDT 11/07/2024 11:52 PM EDT us Michaelle Singh MD LAB BLOOD ORDERABLES Final Res ult Performing Organization Address City/[facility]/ZIP Co de Phone Number [facility] [address] [place] [address], [facility] [phone] * Blue Top Extra Tubes (11/07/2024 11:48 PM EDT) HOLD SPECIMEN (SJ - BKR) Hold for add-ons. 11/08/2024 1:01 AM EDT [facility] Comment:Auto resulted. Blood (Blood, Veinous) Venipuncture / Unknown 11/07/2024 11:48 PM EDT 11/07/2024 11:51 PM EDT us Michalele Singh MD LAB BLOOD ORDERABLES Final Res ult Performing Organization Address City/[facility]/ZIP Co de Phone Number [facility] [address] [place] [address] * High Sensitivity Troponin I (11/07/2024 11:48 PM EDT) [facility] Troponin I High Sensitivity (pg/mL) 5.6 4 - 60.3 pg/mL 11/08/2024 12:39 AM EDT [facility] Comment: Troponin Result (pg/mL) *Interpretation 4-60.3 *Normal; less than 99th percentile of normal range >60.3 *Abnormal; greater than 99th percentile of normal range Biotin specimen concentration >300 ng/mL may lead to falsely depressed results for patient samples. Do not use this test for renal dysfunction patients (eGFR <60) unless it is confirmed that the patient is not taking Biotin. Blood Venipuncture / Unknown 11/07/2024 11:48 PM EDT 11/07/2024 11:52 PM EDT us Michaelle Singh MD LAB BLOOD ORDERABLES Final Res ult Performing Organization Address [facility]/ZIP Co de Phone Number [facility] [address] [place] [address] * Lipase (11/07/2024 11:48 PM EDT) [facility] Lipase 22 16 - 77 U/L 11/08/2024 12:39 AM EDT [facility] Blood Venipuncture / Unknown 11/07/2024 11:48 PM EDT 11/07/2024 11:52 PM EDT us Michaelle Singh MD LAB BLOOD ORDERABLES Final Res ult [facility] [address] [place], [place] [address] [phone] * (ABNORMAL) Comprehensive metabolic panel (11/07/2024 11:48 PM EDT) Sodium 139 136 - 145 meq/L 11/08/2024 12:39 AM EDT [facility] Potassium 3.6 3.5 - 5.1 meq/L 11/08/2024 12:39 AM EDT [facility] Chloride 103 98 - 107 meq/L 11/08/2024 12:39 AM EDT [facility] CO2 30 21 - 32 meq/L 11/08/2024 12:39 AM EDT [facility] Calcium 9.3 8.5 - 10.1 mg/dL 11/08/2024 12:39 AM EDT [facility] Glucose 106(H) 74 - 100 mg/dL 11/08/2024 12:39 AM EDT [facility] BUN 9 7 - 18 mg/dL 11/08/2024 12:39 AM EDT [facility] Creatinine 0.82 0.55 - 1.10 mg/dL 11/08/2024 12:39 AM EDT [facility] BUN/Creatinine 11 11/08/2024 12:39 AM EDT [facility] Albumin 3.4 3.4 - 5.0 g/dL 11/08/2024 12:39 AM EDT [facility] Alkaline Phosphatase 61 46 - 116 U/L 11/08/2024 12:39 AM EDT [facility] ALT 20 12 - 78 U/L 11/08/2024 12:39 AM EDT [facility] AST 15 15 - 37 U/L 11/08/2024 12:39 AM EDT [facility] Total Bilirubin 0.4 0.2 - 1.0 mg/dL 11/08/2024 12:39 AM EDT [facility] Protein, Total 6.7 6.4 - 8.2 gm/dL 11/08/2024 12:39 AM EDT [facility] Anion Gap 10(L) - 11/08/2024 12:39 AM EDT [facility] A/G Ratio 1.0 11/08/2024 12:39 AM EDT [facility] Globulin 3.3 g/dL 11/08/2024 12:39 AM EDT [facility] Osmolality Calc 276.6 mOsm/kg 12:39 AM EDT [facility] eGFR (mL/min/1.73m2) >60 >=60 mL/min/1.7 3m2 11/08/2024 12:39 AM EDT [facility] Comment:ESTIMATED GFR IS NOT ACCURATE CREATININE CLEARANCE IN PREDICTING GLOMERULAR FILTRATION RATE. ESTIMATED GFR IS NOT APPLICABLE FOR DIALYSIS PATIENTS. Blood Venipuncture / Unknown 11/07/2024 11:48 PM EDT 11/07/2024 11:52 PM EDT us Michaelle Singh MD LAB BLOOD ORDERABLES Final Res ult [facility] [address] [place] [address] * (ABNORMAL) CBC with Auto Diff (11/07/2024 11:48 PM EDT) WBC 6.5 4.8 - 10.8 K/ L 11/08/2024 12:11 AM EDT [facility] RBC 4.64 3.50 - 5.20 M/ L 11/08/2024 12:11 AM EDT [facility] Hemoglobin 14.3 11.7 - 15.8 GM/DL 11/08/2024 12:11 AM EDT [facility] Hematocrit 40.4 35.0 - 47.0 % 11/08/2024 12:11 AM EDT [facility] MCV 87 81 - 101 fL 11/08/2024 12:11 AM EDT [facility] MCH 30.8 27.0 - 34.0 pg 11/08/2024 12:11 AM EDT [facility] MCHC 35.4 32.0 - 36.0 GM/DL 11/08/2024 12:11 AM EDT [facility] RDW 11.7 11.5 - 14.5 % 11/08/2024 12:11 AM EDT [facility] Platelets 223 150 - 400 K/CU MM 11/08/2024 12:11 AM EDT [facility] MPV 10.1 9.4 - 12.4 fL 11/08/2024 12:11 AM EDT [facility] Nucleated Red Blood Cell 0.0 0 - 0.2 % 11/08/2024 12:11 AM EDT [facility] % Neutros 50 37 - 80 % 11/08/2024 12:11 AM EDT [facility] % Lymphs 39 10 - 50 % 11/08/2024 12:11 AM EDT [facility] % Monos 8 5 - 13 % 11/08/2024 12:11 AM EDT [facility] % Eos 3 0 - 7 % 11/08/2024 12:11 AM EDT [facility] % Baso 1 0 - 3 % 11/08/2024 12:11 AM EDT [facility] NRBC Absolute <0.01 0 - 0.012 K/ul 11/08/2024 12:11 AM EDT [facility] # Neutros 3.29 2.00 - 6.90 K/ L 11/08/2024 12:11 AM EDT [facility] # Lymphs 2.53 0.60 - 3.40 K/ L 11/08/2024 12:11 AM EDT [facility] # Monos 0.50 0.00 - 0.90 K/ L 11/08/2024 12:11 AM EDT [facility] # Eos 0.17 0.00 - 0.70 K/ L 11/08/2024 12:11 AM EDT [facility] # Baso 0.04 0.00 - 0.20 K/ L 11/08/2024 12:11 AM EDT [facility] % Imm Grans 0.20 % 11/08/2024 12:11 AM EDT [facility] # IG 0.01(H) 0.00 - 0.00 K/uL 11/08/2024 12:11 AM EDT [facility] Blood Venipuncture / Unknown 11/07/2024 11:48 PM EDT 11/07/2024 11:51 PM EDT Narrative [facility] - 11/08/2024 12:11 AM EDT When CBC w/ Auto Diff is ordered the lab will add a Manual Differential as a quality check at no additional charge if: Lymphocytes greater than seventy five percent with normal or increased WBC Monocytes greater than Fifteen percent Basophil greater than four percent Bands >10% or several immature myeloids are seen on scan Blast? Flag noted Atypical Lymph flag noted us Michaelle Singh MD LAB BLOOD ORDERABLES Final Res ult [facility] [address] [place] [address] * XR chest 1 view portable / bedside (11/07/2024 11:34 PM EDT) Anatomical Region Laterality Modality X-Ray 11/08/2024 8:02 AM EDT Impressions 11/08/2024 9:47 AM EDT No acute cardiopulmonary process. Images reviewed, interpreted, and dictated by Dr. Teresita Mcmanus. Transcribed by Nicola Kilgore PA-C. Narrative 11/08/2024 9:47 AM EDT PORTABLE CHEST HISTORY: Precordial chest pain. COMPARISON: 02/15/2024. FINDINGS: The heart is normal in size. The mediastinum is unremarkable. The lungs are clear. There is no pneumothorax. Procedure Note Teresita Mcmanus MD - 11/08/2024 PORTABLE CHEST HISTORY: Precordial chest pain. COMPARISON: 02/15/2024. FINDINGS: The heart is normal in size. The mediastinum is unremarkable. The lungs are clear. There is no pneumothorax. IMPRESSION: No acute cardiopulmonary process. Images reviewed, interpreted, and dictated by Dr. Teresita Mcmanus. Transcribed by Nicola Kilgore PA-C. us Michaelle Singh MD IMG DIAGNOSTIC IMAGING ORDERAB LES Final Result * ECG 12 lead (11/07/2024 11:11 PM EDT) VENTRICULAR RATE EKG/MIN 62 BPM GE MUSE ATRIAL RATE (MCT) 62 BPM GE MUSE VT Interval 140 ms GE MUSE QRS-INTERVAL (MSEC) 82 ms GE MUSE QT Interval 398 ms GE MUSE QTC Interval 403 ms GE MUSE P [place] 65 degrees GE MUSE R AXIS (MCT) -6 degrees GE MUSE T Wave [place] 18 degrees GE MUSE Dixon Diagnosis Normal sinus rhythm Possible Anterior infarct (cited on or before 11-DEC-2022) Abnormal ECG Confirmed by Baldomero JAVED, XAVI ([id number]) on 11/08/2024 11:48:08 AM GE MUSE 11/07/2024 11:1 1 PM EDT 11/08/2024 11:48 AM EDT us Michaelle Singh MD ECG ORDERABLES Final Result [facility] documented in this encounter Visit Diagnoses Diagnosis Chest pain, unspecified- Primary Chest pain, unspecified type documented in this encounter Administered Medications Inactive Administered Medications - up to 3 most recent administrations Medication Order MAR Action Action Date Dose Rate Site hydrOXYzine (ATARAX) tablet 25 mg 25 mg Once, oral, On Fri11/08/24 at 0120, For 1 dose, Look-alike/Sound-alike medication Given 11/08/2024 1:25 AM EDT 25 mg documented in this encounter Active and Recently Administered Medications Times are shown in EDT. Scheduled Medication Order 11/06/2024 11/07/2024 11/08/2024 hydrOXYzine (ATARAX) tablet 25 mg (COMPLETED) 25 mg Once, oral, On Fri11/08/24 at 0120, For 1 dose, Look-alike/Sound-alike medication 0125 (Given - Provid er: Louie Harley) documented in this encounter Care Teams Build Engineer Relationship Specialty Start Date End Date Pancho Lancaster MD [address] [place] [address] [place] [address] PCP - General Family Medicine 12/11/22 documented as of this encounter
--- OUTSIDE RECORDS SUMMARY | 2024-11-19 16:17 | XMS_ITS | Encounter Summary ---
Author Organization [facility] ([place], [place], [place], [place], [place]) Address [address] [place] [address] Care Team Providers Care Dumpster Operator Name Role Phone Pancho Lancaster MD Primary Care Provider [phone] Reason for Visit * Reason Comments Irregular Heart Beat Patient reports pos sible PVC's; states her commercial retoucher recommended she come to the ED to get a EKG and labs Encounter Details Date Type Department Care Team (Late st Contact Info) Description 11/19/2024 5:17 PM EDT - 11/19/2024 6:19 PM EDT Emergency [facility] Emergency Department [address] [place] [id number] Khalida Whalen MD [address] [place] [id number] Chest wall pain (Primary Dx) Discharge Disposition: Home or Self Care Social [...] Date Evelio rded Speak language other than German at home Not on file 03/08/2023 Want [...] Sign Reading Time Taken Comments Blood Pressure 137/85 11/19/2024 3:18 PM EDT Pulse 83 11/19/2024 3:18 PM EDT Temperature - - Respiratory Rate 18 11/19/2024 6:19 PM EDT Oxygen Saturation 98% 11/19/2024 6:19 PM EDT Inhaled Oxygen Concentration - - Weight 117.9 kg (260 lb) 11/19/2024 3:18 PM EDT Height 167.6 cm (5' 6 ) 11/19/2024 3:18 PM EDT Body Mass Index 41.97 11/19/2024 3:18 PM EDT documented in this encounter Discharge Instructions * Discharge Instructions* Noelle Rehman PA-C - 11/19/2024 5:54 PM EDT Continue home medications. Follow-up with Dr. Parada, document specialist in [place], and your family doctor as soon as possible. Return to the ER for sustained heart racing, chest pain, shortness of breath, passing out, new or worsening symptoms. * Attachments The following attachments cannot be sent through Care Everywhere. * Chest Wall Pain [id number] (German) documented in this encounter Medications at Time [...] as of this encounter ED Notes * Noelle Rehman PA-C - 11/19/2024 5:45 PM EDT Subjective Chief Complaint: Irregular Heart Beat (Patient reports possible PVC's; states her commercial retoucher recommended she come to the ED to get a EKG and labs) 44-year-old female here with a muscle twitching sensation to the left anterior chest wall for the past 3 days. Called her primary care provider and they sent her to the ER for cardiac workup. No actual heart palpitations, chest pain, shortness of breath, syncope or presyncope. She has been seeing Dr. Parada, document specialist in [place], regarding family history of CHF and bilateral lower extremity edema. She has performed a Holter and echo on the patient and has her on Lasix and potassium at home. No other complaints at this time. LMP 3 weeks ago. History provided by: Patient medical interpreter used: No Chest Pain Pain location: L chest Pain quality comment: Twitching sensation to the chest wall Pain radiates to: Does not radiate Pain severity: Mild Onset quality: Gradual Duration: 3 days Timing: Intermittent Progression: Unchanged Chronicity: New Context: at rest Relieved by: Nothing Worsened by: Nothing Ineffective treatments: None tried Associated symptoms: no shortness of breath Patient History Past Medical History: Diagnosis Date Obesity Thyroid disease Past Surgical History: Procedure Laterality Date APPENDECTOMY CERVICAL FUSION CHOLECYSTECTOMY SHOULDER SURGERY No family history on file. Social History Tobacco Use Smoking status: Every Day Smokeless tobacco: Never Tobacco comments: Pt vapes Substance Use Topics Alcohol use: Not Currently I reviewed the HPI, ROS and PFSH documentation recorded by others in the medical record and supplemented my note as needed. Review of Systems Review of Systems Respiratory: Negative for shortness of breath. Cardiovascular: Positive for leg swelling. Musculoskeletal: Positive for myalgias. All other systems reviewed and are negative. Physical Exam ED Triage Vitals [11/19/24 1518] Encounter Vitals Group BP 137/85 Girls Systolic BP Percentile Girls Diastolic BP Percentile Boys Systolic BP Percentile Boys Diastolic BP Percentile Pulse 83 Resp 20 Temp Temp src SpO2 98 % Weight 117.9 kg (260 lb) Height 1.676 m (5' 6 ) Head Circumference Peak Flow Pain Score Zero Pain Loc Pain Education Exclude from Growth Chart Physical Exam Vitals and nursing note reviewed. Constitutional: Appearance: Normal appearance. HENT: Head: Normocephalic and atraumatic. Nose: Nose normal. Eyes: Extraocular Movements: Extraocular movements intact. Pupils: Pupils are equal, round, and reactive to light. Cardiovascular: Rate and Rhythm: Normal rate and regular rhythm. Heart sounds: Normal heart sounds. Pulmonary: Effort: Pulmonary effort is normal. Breath sounds: Normal breath sounds. Comments: There is some mild tenderness to the left chest wall. Chest: Chest wall: Tenderness present. Musculoskeletal: General: Normal range of motion. Cervical back: Normal range of motion and neck supple. Right lower leg: Edema present. Left lower leg: Edema present. Skin: General: Skin is warm and dry. Neurological: General: No focal deficit present. Mental Status: She is alert and oriented to person, place, and time. Mental status is at baseline. Psychiatric: Mood and Affect: Mood normal. Thought Content: Thought content normal. Judgment: Judgment normal. Neurological Exam Mental Status Alert. Oriented to person, place, and time. Cranial Nerves CN III, IV, : Extraocular movements intact bilaterally. Pupils equal round and reactive to light bilaterally. Ortho Exam ED Course & MDM Medications - No data to display Results for orders placed or performed during the hospital encounter of 11/19/24 CBC with Auto Diff Result Value Ref Range WBC 7.5 4.8 - 10.8 K/??L RBC 4.67 3.50 - 5.20 M/??L Hemoglobin 14.5 11.7 - 15.8 GM/DL Hematocrit 41.8 35.0 - 47.0 % MCV 90 81 - 101 fL MCH 31.0 27.0 - 34.0 pg MCHC 34.7 32.0 - 36.0 GM/DL RDW 11.9 11.5 - 14.5 % Platelets 217 150 - 400 K/CU MM MPV 9.8 9.4 - 12.4 fL Nucleated Red Blood Cell 0.0 0 - 0.2 % % Neutros 64 37 - 80 % % Lymphs 27 10 - 50 % % Monos 7 5 - 13 % % Eos 1 0 - 7 % % Baso 1 0 - 3 % NRBC Absolute <0.01 0 - 0.012 K/ul # Neutros 4.77 2.00 - 6.90 K/??L # Lymphs 1.98 0.60 - 3.40 K/??L # Monos 0.55 0.00 - 0.90 K/??L # Eos 0.10 0.00 - 0.70 K/??L # Baso 0.05 0.00 - 0.20 K/??L Immature Granulocytes-Relative 0.40 % # IG 0.03 (H) 0.00 - 0.00 K/uL Comprehensive metabolic panel Result Value Ref Range Sodium 140 136 - 145 meq/L Potassium 3.7 3.5 - 5.1 meq/L Chloride 104 98 - 107 meq/L CO2 27 21 - 32 meq/L Calcium 9.1 8.5 - 10.1 mg/dL Glucose 107 (H) 74 - 100 mg/dL BUN 10 7 - 18 mg/dL Creatinine 0.76 0.55 - 1.10 mg/dL BUN/Creatinine 13 Albumin 3.6 3.4 - 5.0 g/dL Alkaline Phosphatase 60 46 - 116 U/L ALT 28 12 - 78 U/L AST 18 15 - 37 U/L Total Bilirubin 0.5 0.2 - 1.0 mg/dL Protein, Total 7.3 6.4 - 8.2 gm/dL Anion Gap 13 11 - 22 A/G Ratio 1.0 Globulin 3.7 g/dL Osmolality Calc 278.9 mOsm/kg eGFR (mL/min/1.73m2) >60 >=60 mL/min/1.73m2 Magnesium Result Value Ref Range Magnesium 1.8 1.8 - 2.4 mg/dL High Sensitivity Troponin I Result Value Ref Range Troponin I High Sensitivity (pg/mL) 5.5 4 - 60.3 pg/mL ECG 12 lead Result Value Ref Range VENTRICULAR RATE EKG/MIN 78 BPM ATRIAL RATE (MCT) 78 BPM AR Interval 146 ms QRS-INTERVAL (MSEC) 82 ms QT Interval 348 ms QTC Interval 396 ms P Krum 43 degrees R AXIS (MCT) -2 degrees T Wave Krum 12 degrees Beulah Diagnosis Normal sinus rhythm Normal ECG When compared with ECG of 07-NOV-2024 23:11, Borderline criteria for Anterior infarct are no longer present Confirmed by Baldomero JAVED RICHARD ([id number]) on 11/19/2024 4:14:07 PM No orders to display ED Course as of 11/19/241754Nov 19, 2024 1531 EKG was reviewed and personally interpreted by Khalida Whalen MD and notable for rate of 78, normal AR interval, normal QRS, normal QTc, normal axis, no STEMI. [KH] ED Course User Index [KH] Khalida Whalen MD Procedures Medical Decision Making 44-year-old female here with muscle twitching sensation in her left chest. Differential diagnosis includes but is not limited to: Chest wall pain, muscle fasciculations, electrolyte disturbance, cardiac event, cardiac arrhythmia, among others. Workup is negative for electrolyte disturbance and myocardial infarction. Case has been discussed with attending: Okay for home, follow-up with PMD/heart doctor. Problems Addressed: Chest wall pain: acute illness or injury Amount and/or Complexity of Data Reviewed Labs: ordered. Decision-making details documented in ED Course. ECG/medicine tests: ordered and independent interpretation performed. Decision- making details documented in ED Course. Assessment & Plan Clinical Impression Diagnosis Comment Added By Time Added Chest wall pain Noelle Rehman PA-C 11/19/2024 5:49 PM Disposition Discharge [1] - 11/19/2024 5:55 PM New Prescriptions No medications on file Contact information for follow-up Pancho Lancaster MD Specialty: Family Medicine Relationship: PCP - General [address] [place] [address] [address] Next Steps: Follow up in 1 day(s) Next Steps: Follow up in 1 day(s) Electronically Signed By Noelle Rehman PA-C 11/19/241754 Cosigned by Khalida Whalen MD at 11/22/2024 7:02 AM EDT Associated attestation - Khalida Whalen MD - 11/22/2024 6:02 AM CDT I was available in the emergency department for consultation on this patient. However, I did not actively participate in this patient's care. Based on chart review, the care appears appropriate. documented in this encounter Plan of Treatment Not on file documented as of this encounter Procedures Procedure Name Priority Date/Time Associated Diagnosis Comments CBC W/ AUTO DIFF STAT 11/19/2024 3:43 PM EDT HIGH SENSITIVITY TROPONIN I STAT 11/19/2024 3:43 PM EDT MAGNESIUM STAT 11/19/2024 3:43 PM EDT COMPREHENSIVE METABOLIC PANEL STAT 11/19/2024 3:43 PM EDT FS_MODEL_IP_ECG 12-LEAD Routine 11/19/2024 3:18 PM EDT documented in this encounter Results * High Sensitivity Troponin I (11/19/2024 3:43 PM EDT) Troponin I High Sensitivity (pg/mL) 5.5 4 - 60.3 pg/mL 11/19/2024 4:24 PM EDT [facility] Comment: Troponin Result (pg/mL) *Interpretation [...] not taking Biotin. Blood Venipuncture / Unknown 11/19/2024 3:43 PM EDT 11/19/2024 3:43 PM EDT us Khalida Whalen MD LAB BLOOD ORDERABLES Final Resu lt [facility] [address] [place] [id number] [phone] * Magnesium (11/19/2024 3:43 PM EDT) Pathologist [facility] Magnesium 1.8 1.8 - 2.4 mg/dL 11/19/2024 4:24 PM EDT [facility] Blood Venipuncture / Unknown 11/19/2024 3:43 PM EDT 11/19/2024 3:43 PM EDT us Khalida Whalen MD LAB BLOOD ORDERABLES Final Resu lt [facility] [address] [place] [address], [facility] [phone] * (ABNORMAL) Comprehensive metabolic panel (11/19/2024 3:43 PM EDT) Sodium 140 136 - 145 meq/L 11/19/2024 4:24 PM EDT [facility] Potassium 3.7 3.5 - 5.1 meq/L 11/19/2024 4:24 PM EDT [facility] Chloride 104 98 - 107 meq/L 11/19/2024 4:24 PM EDT [facility] CO2 27 21 - 32 meq/L 11/19/2024 4:24 PM EDT [facility] Calcium 9.1 8.5 - 10.1 mg/dL 11/19/2024 4:24 PM EDT [facility] Glucose 107(H) 74 - 100 mg/dL 11/19/2024 4:24 PM EDT [facility] BUN 10 7 - 18 mg/dL 11/19/2024 4:24 PM EDT [facility] Creatinine 0.76 0.55 - 1.10 mg/dL 11/19/2024 4:24 PM EDT [facility] BUN/Creatinine 13 11/19/2024 4:24 PM EDT [facility] Albumin 3.6 3.4 - 5.0 g/dL 11/19/2024 4:24 PM EDT [facility] Alkaline Phosphatase 60 46 - 116 U/L 11/19/2024 4:24 PM EDT [facility] ALT 28 12 - 78 U/L 11/19/2024 4:24 PM EDT [facility] AST 18 15 - 37 U/L 11/19/2024 4:24 PM EDT [facility] Total Bilirubin 0.5 0.2 - 1.0 mg/dL 11/19/2024 4:24 PM EDT [facility] Protein, Total 7.3 6.4 - 8.2 gm/dL 11/19/2024 4:24 PM EDT [facility] Anion Gap 13 11 - 22 11/19/2024 4:24 PM EDT [facility] A/G Ratio 1.0 11/19/2024 4:24 PM EDT [facility] Globulin 3.7 g/dL 11/19/2024 4:24 PM EDT [facility] Osmolality Calc 278.9 mOsm/kg 4:24 PM EDT [facility] eGFR (mL/min/1.73m2) >60 >=60 mL/min/1.7 3m2 11/19/2024 4:24 PM EDT [facility] Comment:ESTIMATED GFR IS NOT ACCURATE CREATININE CLEARANCE IN PREDICTING GLOMERULAR FILTRATION RATE. ESTIMATED GFR IS NOT APPLICABLE FOR DIALYSIS PATIENTS. Blood Venipuncture / Unknown 11/19/2024 3:43 PM EDT 11/19/2024 3:43 PM EDT us Khalida Whalen MD LAB BLOOD ORDERABLES Final Resu lt [facility] [address] [place] [address], [facility] [phone] * (ABNORMAL) CBC with Auto Diff (11/19/2024 3:43 PM EDT) WBC 7.5 4.8 - 10.8 K/ L 11/19/2024 3:47 PM EDT [facility] RBC 4.67 3.50 - 5.20 M/ L 11/19/2024 3:47 PM EDT [facility] Hemoglobin 14.5 11.7 - 15.8 GM/DL 11/19/2024 3:47 PM EDT [facility] Hematocrit 41.8 35.0 - 47.0 % 11/19/2024 3:47 PM EDT [facility] MCV 90 81 - 101 fL 11/19/2024 3:47 PM EDT [facility] MCH 31.0 27.0 - 34.0 pg 11/19/2024 3:47 PM EDT [facility] MCHC 34.7 32.0 - 36.0 GM/DL 11/19/2024 3:47 PM EDT [facility] RDW 11.9 11.5 - 14.5 % 11/19/2024 3:47 PM EDT [facility] Platelets 217 150 - 400 K/CU MM 11/19/2024 3:47 PM EDT [facility] MPV 9.8 9.4 - 12.4 fL 11/19/2024 3:47 PM EDT [facility] Nucleated Red Blood Cell 0.0 0 - 0.2 % 11/19/2024 3:47 PM EDT [facility] % Neutros 64 37 - 80 % 11/19/2024 3:47 PM EDT [facility] % Lymphs 27 10 - 50 % 11/19/2024 3:47 PM EDT [facility] % Monos 7 5 - 13 % 11/19/2024 3:47 PM EDT [facility] % Eos 1 0 - 7 % 11/19/2024 3:47 PM EDT [facility] % Baso 1 0 - 3 % 11/19/2024 3:47 PM EDT [facility] NRBC Absolute <0.01 0 - 0.012 K/ul 11/19/2024 3:47 PM EDT [facility] # Neutros 4.77 2.00 - 6.90 K/ L 11/19/2024 3:47 PM EDT [facility] # Lymphs 1.98 0.60 - 3.40 K/ L 11/19/2024 3:47 PM EDT [facility] # Monos 0.55 0.00 - 0.90 K/ L 11/19/2024 3:47 PM EDT [facility] # Eos 0.10 0.00 - 0.70 K/ L 11/19/2024 3:47 PM EDT [facility] # Baso 0.05 0.00 - 0.20 K/ L 11/19/2024 3:47 PM EDT [facility] % Imm Grans 0.40 % 11/19/2024 3:47 PM EDT [facility] # IG 0.03(H) 0.00 - 0.00 K/uL 11/19/2024 3:47 PM EDT [facility] Blood Venipuncture / Unknown 11/19/2024 3:43 PM EDT 11/19/2024 3:43 PM EDT Narrative [facility] - 11/19/2024 3:47 PM EDT When CBC w/ Auto Diff is ordered the lab will add a Manual Differential as a quality check at no additional charge if: Lymphocytes greater than seventy five percent with normal or increased WBC Monocytes greater than Fifteen percent Basophil greater than four percent Bands >10% or several immature myeloids are seen on scan Blast? Flag noted Atypical Lymph flag noted us Khalida Whalen MD LAB BLOOD ORDERABLES Final Resu lt [facility] [address] [place] [address] * ECG 12 lead (11/19/2024 3:18 PM EDT) VENTRICULAR RATE EKG/MIN 78 BPM GE MUSE ATRIAL RATE (MCT) 78 BPM GE MUSE AR Interval 146 ms GE MUSE QRS-INTERVAL (MSEC) 82 ms GE MUSE QT Interval 348 ms GE MUSE QTC Interval 396 ms GE MUSE P Krum 43 degrees GE MUSE R AXIS (MCT) -2 degrees GE MUSE T Wave Krum 12 degrees GE MUSE Beulah Diagnosis Normal sinus rhythm Normal ECG When compared with ECG of 07-NOV-2024 23:11, Borderline criteria for Anterior infarct are no longer present Confirmed by Baldomero JAVED, XAVI ([id number]) on 11/19/2024 4:14:07 PM GE MUSE 11/19/2024 3:18 PM EDT 11/19/2024 4:14 PM EDT us Khalida Whalen MD ECG ORDERABLES Final Result GE MUSE documented in this encounter Visit Diagnoses Diagnosis Chest wall pain- Primary Painful respiration documented in this encounter Care Teams Dumpster Operator Relationship Specialty Start Date End Date Pancho Lancaster MD [address] [place] [address] PCP - General Family Medicine 12/11/22 documented as of this encounter
--- OUTSIDE RECORDS SUMMARY | 2025-01-05 08:13 | XMS_ITS | Data Portability ---
Author Organization [facility] [employer], [place] [place] - [place] Address [address] [place] [address] Assessment Encounter Date Assessment Date Assessment LastModified by Organization Details LastModified Time 01/06/2024 01/06/2024 Mirena placed using dialator and usg guidance. Good placement noted. Pevic rest for 24 hrs. f/u 6 wsk or TVUS IUD check. 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 MXR ordered. She is going to return today for Mirena placement. SE and procedure discussed. [email or web address] Not available 01/06/2024 11:14:05 Plan of Treatment Reminders Order Date Submit Date Provider Last Modified By Organization Details Last Modified Time Details Appointments None recorded. Lab test, urine 2023 [email or web address] [place] [address], [address] [place] [address], [address], 4 13:41:19 pap, IG + reflex HPV 2023 024 [facility], [address] [place] [address], [place], [address], 4 14:08:32 urinalysis, dipstick 2023 024 [facility], [address] [place] [address], [place], [address], 4 17:49:47 lipid panel, serum [address] [facility], [address], [place], [address], 4 15:42:33 rf (rheumatoid factor), serum 2023 024 [facility], [address], [place], [address], 4 15:42:35 erythrocyte sedimentati on rate by westergren method 2023 024 [facility], [address], [place], [address], 4 15:42:34 C-reactive protein, quantitativ e, serum or plasma 2023 024 [facility], [address], [place], [address], 4 15:42:36 CMP, serum or plasma [address] [facility], [address], [place], [address], 4 15:42:34 CBC w/ auto diff 2023 024 [facility], [address], [place], [address], 4 15:42:35 TSH, serum or plasma 2023 024 [facility], [address], [place], [address], 4 15:42:37 HbA1c (hemoglobin A1c), blood 2023 024 [facility], [address], [place], [address], 4 15:42:39 vitamin B12 + folate, serum or blood 2023 024 [facility], [address], [place], [address], 4 15:42:36 vitamin D, 25-hydroxy, total, serum 2023 024 NORMANNA [facility], [address], [place], [address], 4 15:42:38 Referral None recorded. Procedures None recorded. Surgeries None recorded. Imaging MAMMO, screening, digital, bilateral [email or web address], [address], 5 13:05:29 MAMMO, screening, digital, bilateral 2023 024 [email or web address] [facility], [address] [place] [address], [address], 4 14:03:09 XR, hip, unilateral, 2 or 3 view 2023 024 [facility], [address] [place] [address], [address], 4 17:26:22 Medication Orders None recorded. Patient TargetsNo targets recorded. Patient Instructions Encounter Date Encounter Id Patient Instructions Last Modified By Organization Details Last Modified Time 01/06/2024 [id number] intrauterine device (IUD) insertion: care instructions [email or web address] Not available 01/06/2024 13:41:19 01/06/2024 [id number] body mass index: care instructions Not available 01/06/2024 11:13:25 learning about healthy weight Not available 01/06/2024 11:13:25 Reason for Referral None Reported. Results Created Date Observation Date Name Description Value Unit Range Abnormal Flag Note LastModifiedBy Organization Detail LastModifiedTime 07/24/19 24 07/25/2023 LIPID PANEL , STAND NOEMÍ cholesterol, total 162 mg/dL <200 normal Not Available [facility] [place] [facility] [address] [facility], [place], [address], 07/25/2023 15:42:33 07/24/1907/25/2023 LIPID PANEL , STAND NOEMÍ HDL cholesterol 46 mg/dL > or = 50 low Not Available [facility] [place] [facility] [address] [facility] [facility] [facility], [place], [address], 07/25/2023 15:42:33 07/24/19 24 07/25/2023 LIPID PANEL , STAND NOEMÍ triglyceride s 120 mg/dL <150 normal Not Available [facility] [place] [facility] [address], [place], [address], 07/25/2023 15:42:33 07/24/19 24 07/25/2023 LIPID PANEL , STAND NOEMÍ LDL-choleste rol 94 mg/dL _(daija c) normal Refer ence range : <100 Wilman able range <100 mg/dL for prima ry preve ntion ; <70 mg/dL for patie nts with CHD or diabe tic patie nts with > or = 2 CHD risk facto rs. LDL-C is now calcu lated using the Judi n-Hop kins calcu awa n, which is a valid ated novel metho d lloyd lopes r accur acy than the Fried belkis equat ion in the estim ation of LDL-C . Judi portillo SS et al. SAMM. 2013; 310(1 9): 2061- 2068 (http ://ed willowati on.Qu Kristen sappTotal Attorneyss. com/f aq/FA Q164) Not Available [facility] [place] [facility] [address] [facility], [place], [address], 07/25/2023 15:42:33 07/24/19 24 07/25/2023 LIPID PANEL , STAND NOEMÍ chol/HDLC ratio 3.5 (calc ) <5.0 normal Not Available [facility] [place] [facility] [address] [place], [address], 07/25/2023 15:42:33 07/24/19 24 07/25/2023 LIPID PANEL , STAND NOEMÍ non HDL cholesterol 116 mg/dL _(daija c) <130 normal For patie nts with diabe ken plus 1 major ASCVD risk facto r, treat ing to a non-H DL-C goal of <100 mg/dL (LDL- C of <70 mg/dL ) is jarrett perez optio n. Not Available [facility] [address] [place], [address], 07/25/2023 15:42:33 07/24/19 24 07/25/2023 COMPR EHENS GHAZALA METAB OLIC PANEL glucose 84 mg/dL 65-99 normal Fasti ng refer ence inter deann Not Available [facility] [address] [place], [address], 07/25/2023 15:42:34 07/24/19 24 07/25/2023 COMPR EHENS GHAZALA METAB OLIC PANEL urea nitrogen (BUN) 9 mg/dL 7-25 normal Not Available [facility] [address] [place], [address], 07/25/2023 15:42:34 07/24/19 24 07/25/2023 COMPR EHENS GHAZALA METAB OLIC PANEL creatinine 0.69 mg/dL 0.50-0 .99 normal Not Available [facility] [address] [place], [address], 07/25/2023 15:42:34 07/24/19 24 07/25/2023 COMPR EHENS GHAZALA METAB OLIC PANEL eGFR 110 mL/mi n/1.7 3m2 > or = 60 normal Not Available [facility] [address] [facility] [place], [address], 07/25/2023 15:42:34 07/24/19 24 07/25/2023 COMPR EHENS GHAZALA METAB OLIC PANEL BUN/creatini ne ratio SEE NOTE: (calc ) 6-22 Not Repor rick: BUN and Creat inine are withi n refer ence range . Not Available [facility] [address] [facility], [address], 07/25/2023 15:42:34 07/24/19 24 07/25/2023 COMPR EHENS GHAZALA METAB OLIC PANEL sodium 139 mmol/ L 135-14 6 normal Not Available [facility] [address] [place], [address], 07/25/2023 15:42:34 07/24/19 24 07/25/2023 COMPR EHENS GHAZALA METAB OLIC PANEL potassium 3.9 mmol/ L 3.5-5. 3 normal Not Available [facility] [address] [facility], [address], 07/25/2023 15:42:34 07/24/19 24 07/25/2023 COMPR EHENS GHAZALA METAB OLIC PANEL chloride 104 mmol/ L 98-110 normal Not Available [facility] [address] [facility] [place], [address], 07/25/2023 15:42:34 07/24/19 24 07/25/2023 COMPR EHENS GHAZALA METAB OLIC PANEL carbon dioxide 28 mmol/ L 20-32 normal Not Available [facility] [address] [place], [address], 07/25/2023 15:42:34 07/24/19 24 07/25/2023 COMPR EHENS GHAZALA METAB OLIC PANEL calcium 9.2 mg/dL 8.6-10 .2 normal Not Available [facility] [place] [facility] [address] [place], [address], 07/25/2023 15:42:34 07/24/19 24 07/25/2023 COMPR EHENS GHAZALA METAB OLIC PANEL protein, total 6.4 g/dL 6.1-8. 1 normal Not Available [facility] [place] [facility] [address] [facility] [place], [address], 07/25/2023 15:42:34 07/24/19 24 07/25/2023 COMPR EHENS GHAZALA METAB OLIC PANEL albumin 3.9 g/dL 3.6-5. 1 normal Not Available [facility] [place] [facility] [address] [facility] [place], [address], 07/25/2023 15:42:34 07/24/19 24 07/25/2023 COMPR EHENS GHAZALA METAB OLIC PANEL globulin 2.5 g/dL_ (calc ) 1.9-3. 7 normal Not Available [facility] [address] [facility], [address], 07/25/2023 15:42:34 07/24/19 24 07/25/2023 COMPR EHENS GHAZALA METAB OLIC PANEL albumin/glob ulin ratio 1.6 (calc ) 1.0-2. 5 normal Not Available [facility] [place] [facility] [address] [facility] [place], [address], 07/25/2023 15:42:34 07/24/19 24 07/25/2023 COMPR EHENS GHAZALA METAB OLIC PANEL bilirubin, total 0.4 mg/dL 0.2-1. 2 normal Not Available [facility] [place] [facility] [address] [facility] [place], [address], 07/25/2023 15:42:34 07/24/19 24 07/25/2023 COMPR EHENS GHAZALA METAB OLIC PANEL alkaline phosphatase 56 U/L 31-125 normal Not Available [facility] [place] [facility] [address] [place], [address], 07/25/2023 15:42:34 07/24/19 24 07/25/2023 COMPR EHENS GHAZLAA METAB OLIC PANEL AST 16 U/L 10-30 normal Not Available [facility] [address] [place], [address], 07/25/2023 15:42:34 07/24/19 24 07/25/2023 COMPR EHENS GHAZALA METAB OLIC PANEL ALT 16 U/L 6-29 normal Not Available [facility] [address] [place], [address], 07/25/2023 15:42:34 07/24/19 24 07/25/2023 SED RATE BY MODIF IED WESTCarissa RGREN sed rate by modified westergren 6 mm/h < or = 20 normal Not Available [facility] [address] [place], [address], 07/25/2023 15:42:34 07/24/19 24 07/25/2023 CBC (INCL UDES DIFF/ PLT) white blood cell count 7.3 thous and/u L 3.8-10 .8 normal Not Available [facility] [address] [place], [address], 07/25/2023 15:42:35 07/24/19 24 07/25/2023 CBC (INCL UDES DIFF/ PLT) red blood cell count 4.28 wilberto on/uL 3.80-5 .10 normal Not Available [facility] [address] [place], [address], 07/25/2023 15:42:35 07/24/19 24 07/25/2023 CBC (INCL UDES DIFF/ PLT) hemoglobin 13.8 g/dL 11.7-1 5.5 normal Not Available [facility] [address] [facility] [place], [address], 07/25/2023 15:42:35 07/24/19 24 07/25/2023 CBC (INCL UDES DIFF/ PLT) hematocrit 41.3 % 35.0-4 5.0 normal Not Available [facility] [address] [facility], [address], 07/25/2023 15:42:35 07/24/19 24 07/25/2023 CBC (INCL UDES DIFF/ PLT) MCV 96.5 fL 80.0-1 00.0 normal Not Available [facility] [address] [facility] [place], [address], 07/25/2023 15:42:35 07/24/19 24 07/25/2023 CBC (INCL UDES DIFF/ PLT) MCH 32.2 pg 27.0-3 3.0 normal Not Available [facility] [address] [facility], [address], 07/25/2023 15:42:35 07/24/19 24 07/25/2023 CBC (INCL UDES DIFF/ PLT) MCHC 33.4 g/dL 32.0-3 6.0 normal Not Available [facility] [address] [facility], [address], 07/25/2023 15:42:35 07/24/19 24 07/25/2023 CBC (INCL UDES DIFF/ PLT) RDW 11.8 % 11.0-1 5.0 normal Not Available [facility] [address] [facility], [address], 07/25/2023 15:42:35 07/24/19 24 07/25/2023 CBC (INCL UDES DIFF/ PLT) platelet count 228 thous and/u L 140-40 0 normal Not Available [facility] [address], [place], [address], 07/25/2023 15:42:35 07/24/19 24 07/25/2023 CBC (INCL UDES DIFF/ PLT) MPV 10.5 fL 7.5-12 .5 normal Not Available [facility] [place] [facility] [address] [facility], [place], [address], 07/25/2023 15:42:35 07/24/19 24 07/25/2023 CBC (INCL UDES DIFF/ PLT) absolute neutrophils 4833 cells /uL 1500-7 800 normal Not Available [facility] [place] [facility] [address] [facility], [place], [address], 07/25/2023 15:42:35 07/24/19 24 07/25/2023 CBC (INCL UDES DIFF/ PLT) absolute lymphocytes 1898 cells /uL 850-39 00 normal Not Available [facility] [place] [facility] [address] [facility], [place], [address], 07/25/2023 15:42:35 07/24/19 24 07/25/2023 CBC (INCL UDES DIFF/ PLT) absolute monocytes 423 cells /uL 200-95 0 normal Not Available [facility] [place] [facility] [address] [facility] [address], [place], [address], 07/25/2023 15:42:35 07/24/19 24 07/25/2023 CBC (INCL UDES DIFF/ PLT) absolute eosinophils 110 cells /uL 15-500 normal Not Available [facility] [place] [facility] [address] [facility], [place], [address], 07/25/2023 15:42:35 07/24/19 24 07/25/2023 CBC (INCL UDES DIFF/ PLT) absolute basophils 37 cells /uL 0-200 normal Not Available [facility] [place] [facility] [address] [facility], [place], [address], 07/25/2023 15:42:35 07/24/19 24 07/25/2023 CBC (INCL UDES DIFF/ PLT) neutrophils 66.2 % normal Not Available [facility] [place] [facility] [address] [place], [address], 07/25/2023 15:42:35 07/24/19 24 07/25/2023 CBC (INCL UDES DIFF/ PLT) lymphocytes 26.0 % normal Not Available [facility] [place] [facility] [address], [place], [address], 07/25/2023 15:42:35 07/24/19 24 07/25/2023 CBC (INCL UDES DIFF/ PLT) monocytes 5.8 % normal Not Available [facility] [place] [facility] [address], [place], [address], 07/25/2023 15:42:35 07/24/19 24 07/25/2023 CBC (INCL UDES DIFF/ PLT) eosinophils 1.5 % normal Not Available [facility] [place] [facility] [address], [place], [address], 07/25/2023 15:42:35 07/24/19 24 07/25/2023 CBC (INCL UDES DIFF/ PLT) basophils 0.5 % normal Not Available [facility] [place] [facility] [address], [place], [address], 07/25/2023 15:42:35 07/24/19 24 07/25/2023 RHEUM ATOID FACTO R rheumatoid factor <10 IU/mL <14 normal Not Available [facility] [place] [facility] [address], [place], [address], 07/25/2023 15:42:35 07/24/19 24 07/25/2023 C-KIRK CTIVE PROTE IN C-reactive protein <3.0 mg/L <8.0 normal Not Available [facility] [place] [facility] [address] [place], [address], 07/25/2023 15:42:36 07/24/19 24 07/25/2023 VITAM IN B12/F OLATE , SERUM PANEL vitamin B12 252 pg/mL 200-11 00 normal Pleas e Note: Altho ugh the refer ence range for vitam in B12 is 200-1 100 pg/mL , it has been repor rick that betwe en 5 and 10% of patie nts with value s betwe en 200 and 400 pg/mL may exper ience neuro psych iatri c and hemat ologi c abnor malit ies due to occul t B12 defic iency ; less than 1% of patie nts with value s above 400 pg/mL will have sympt oms. Not Available [facility] [address] [place], [address], 07/25/2023 15:42:36 07/24/19 24 07/25/2023 VITAM IN B12/F OLATE , SERUM PANEL folate, serum 10.2 NG/mL normal Refer ence Range Low: <3.4 Borde rline : 3.4-5 .4 Deann l: >5.4 Not Available [facility] [address] [place], [address], 07/25/2023 15:42:36 07/24/19 24 07/25/2023 TSH W/REF BELINDA TO FT4 TSH w/reflex to FT4 5.23 mIU/L high Refer ence Range > or = 20 Years 0.40- 4.50 Pregn lois Range s First trime ster 0.26- 2.66 Secon d trime ster 0.55- 2.73 Third trime ster 0.43- 2.91 Not Available [facility] [address] [place], [address], 07/25/2023 15:42:37 07/24/19 24 07/25/2023 T4, FREE T4, free 0.8 NG/dL 0.8-1. 8 normal Not Available [facility] [address] [place], [address], 07/25/2023 15:42:38 07/24/19 24 07/25/2023 VITAM IN D,25- OH,TO JANE,I A vitamin D,25-oh,tota l,ia 26 NG/mL 30-100 low Vitam in D Statu s 25-OH Vitam in D: Defic iency : <20 ng/mL Insuf ficie ncy: 20 - 29 ng/mL Optim al: > or = 30 ng/mL For 25-OH Vitam in D testi ng on patie nts on D2-reina pplem entat ion and patie nts for whom quant itati on of D2 and D3 fract ions is requi red, the [facility] e[facility](TM ) 25-OH VIT D, (D2,D 3), LC/MS /MS is recom elena d: order code 85148 (jonathan ents >2yrs ). See Note 1 Note 1 For addit ional infor jean leal e refer to http: //zoë Mccord stDia gnost ics.c om/fa q/FAQ 199 (This link is being provi ded for infor gilmar alvares/ francisco javier cruz purpo ses only. ) Not Available [facility] [place] [facility] [address] [facility], [place], [address], 07/25/2023 15:42:38 07/24/19 24 07/25/2023 HEMOG LOBIN A1C hemoglobin A1C 5.1 %_of_ total _HGB <5.7 normal For the purpo se of scree zulma for the prese nce of diabe ken: <5.7% Consi stent with the absen ce of diabe ken 5.7-6 .4% Consi stent with incre ased risk for diabe ken (pred iabet es) > or =6.5% Consi stent with diabe ken This assay resul t is consi stent with a decre ased risk of diabe ken. Curre ntly, no conse nsus exist s regbrian rascon use of hemog lobin A1c for diagn osis of diabe ken in child karla. Accor tarah to Ameri can Diabe ken Assoc iatio n (ADA) guide lines , hemog lobin A1c <7.0% repre sents optim al contr ol in non-p regna nt diabe tic patie nts. Diffe rent metri cs may apply to speci fic patie nt popul ation s. Stand ards of Medic al Care in Diabe ken(A DA). This test was perfo rmed on the Nabila anabel c503 platf orm. Effec tive 4, a navarro e in test platf orms from the [facility] Ar[facility] tect to the [facility] anabel c503 may have shift ed HbA1c resul ts leigh ann red to histo rical resul ts. Based on labor atory valid ation testi ng condu cted at [facility] , the [facility] platf orm relat ghazala to the [facility] platf orm had an avera ge incre ase in HbA1c value of < or = 0.3%. This diffe rence is withi n accep rick varia bilit y estab lishe d by the Natio nal Glyco hemog lobin Stand ardiz ation Progr am. Note that not all indiv idual s will have had a shift in their resul ts and direc t leigh ann rison s betwe en histo rical and curre nt resul ts for testi ng condu cted on diffe rent platf orms is not recom elena d. Not Available [facility] [place] [facility] [address] [facility], [place], [address], 07/25/2023 15:42:39 07/24/19 24 07/24/2023 urina lysis , dipst ick Leukocytes Negati ve Not Available [facility] - [address], [address], 07/24/2023 15:28:59 07/24/19 24 07/24/2023 urina lysis , dipst ick Nitrite negati ve Not Available [facility] - [address], [address], 07/24/2023 15:28:59 07/24/19 24 07/24/2023 urina lysis , dipst ick Urobilinogen 2 Not Available [address], [address], 07/24/2023 15:28:59 07/24/19 24 07/24/2023 urina lysis , dipst ick Protein Negati ve Not Available [address], [address], 07/24/2023 15:28:59 07/24/19 24 07/24/2023 urina lysis , dipst ick pH 6.0 Not Available [address], [address], 07/24/2023 15:28:59 07/24/19 24 07/24/2023 urina lysis , dipst ick Blood Non-He molyze d: Trace Not Available [address], [address], 07/24/2023 15:28:59 07/24/19 24 07/24/2023 urina lysis , dipst ick Specific [place] 1.025 Not Available [address], [address], 07/24/2023 15:28:59 07/24/19 24 07/24/2023 urina lysis , dipst ick Ketone Negati ve Not Available [address], [address], 07/24/2023 15:28:59 07/24/19 24 07/24/2023 urina lysis , dipst ick Bilirubin Negati ve Not Available [address] [place], [address], 07/24/2023 15:28:59 07/24/19 24 07/24/2023 urina lysis , dipst ick Glucose Negati ve Not Available [address], [address], 07/24/2023 15:28:59 07/24/19 24 07/24/2023 urina lysis , dipst ick Appearance Clear Not Available [address], [address], 07/24/2023 15:28:59 07/24/19 24 07/24/2023 urina lysis , dipst ick Color Dark Yellow Not Available [address], [address], 07/24/2023 15:28:59 01/06/20 24 01/07/2024 IGP,A PTIMA HPV,A GE GDLN age gdln acog testing 30-65 Not Available [facility] ([facility]) [address] [facility], [place], [address], 01/12/2024 14:08:32 01/06/20 24 01/08/2024 IGP,A PTIMA HPV,A GE GDLN HPV aptima Negati ve negati ve This nucle ic acid ampli ficat ion test detec ts fourt een high- risk HPV types (16,1 8,31, 33,35 ,39,4 5,51, 52,56 ,58,5 9,66, 68) witho ut diffe renti ation . Not Available [facility] ([facility]) [address] [facility], [place], [address], 01/12/2024 14:08:32 01/06/20 24 01/12/2024 IGP,A PTIMA HPV,A GE GDLN diagnosis: Commen t NEGAT GHAZALA FOR INTRA EPITH ELIAL LESIO N OR ARIC ORELLANA . Not Available [facility] ([facility]) [address] [place], [address], 01/12/2024 14:08:32 01/06/20 24 01/12/2024 IGP,A PTIMA HPV,A GE GDLN specimen adequacy: Thom franco Satis facto ry for evalu ation . Endoc ervic al and/o r squam ous metap lasti c cells (endo cervi daija compo nent) are prese nt. Not Available [facility] ([facility]) [address] [place], [address], 01/12/2024 14:08:32 01/06/20 24 01/12/2024 IGP,A PTIMA HPV,A GE GDLN clinician provided ICD10: Thom franco Z01.4 19 Not Available [facility] ([facility]) [address] [place], [address], 01/12/2024 14:08:32 01/06/20 24 01/12/2024 IGP,A PTIMA HPV,A GE GDLN performed by: Sharon Scott (ASCP ) Not Available [facility] ([facility]) [address] [place], [address], 01/12/2024 14:08:32 01/06/20 24 01/12/2024 IGP,A PTIMA HPV,A GE GDLN . . Not Available [facility] ([facility]) [address] [place], [address], 01/12/2024 14:08:32 01/06/20 24 01/12/2024 IGP,A PTIMA HPV,A GE GDLN note: Thom franco The Pap smear is a scree zulma test desig ingris to aid in the detec tion of laina ligna nt and malig nant condi tions of the uteri ne cervi x. It is not a diagn ostic proce dure and shoul d not be used as the sole means of detec ting cervi daija cance r. Both false -posi tive and false -nega tive repor ts do occur . Not Available [facility] ([facility]) [address] [facility], [place], [address], 01/12/2024 14:08:32 01/06/20 24 01/12/2024 IGP,A PTIMA HPV,A GE GDLN test methodology: Commen t This liqui d based ThinP rep(R ) pap test was scree ingris with the use of an image guide anayeli lara. Not Available [facility] ([facility]) [address] [facility], [place], [address], 01/12/2024 14:08:32 01/06/20 24 01/12/2024 IGP,A PTIMA HPV,A GE GDLN HPV genotype reflex Commen t Crite kostas not met, HPV Genot ype not perfo rmed. Not Available [facility] ([facility]) [address] [facility], [place], [address], 01/12/2024 14:08:32 01/06/20 24 01/06/2024 pregn lois test, urine HCG negati ve Not Available [address], [address], 01/06/2024 13:37:58 07/24/19 XR, hip, unila teral , 2 or 3 view No observ ation record ed. [address], [place], [address], 07/25/2023 17:08:41 01/06/20 24 01/06/2024 US, pelvi s No observ ation record ed. [address], [place], [address], 01/06/2024 13:45:09 Result Notes None recorded. Problems Name Problem SNOMED Code Status Onset Date Resolution Date Notes Provider Name and Address Organization Details Recorded Time Body mass index 40+ - severely obese 824526795 Active 2023 Yousif Yates III, MD [address] [place] [address], [phone], [employer] 4 11:12:35 Gynecologic examination normal 5129219149 Active 2023 Yousif Yates III, MD [address] [place] [address], [phone], [employer] 4 11:12:42 Contraception care management Active 2023 Yousif Yates III, MD [address] [place] [address], [phone], [employer] 4 13:40:58 Insertion of intrauterine contraceptive device Active 2023 Yousif Yates III, MD [address] [place] [address], [phone], [employer] 4 13:41:10 Problem Notes None recorded. Procedures Surgical History Date Name Laterality Status Provider Name and Address Organization Details Recorded Time 02/16/20 24 IUD Removal completed Rosita Ambrose APRN [address] [place] [address], [phone], [employer] 02/16/2024 09:57:13 01/06/20 24 IUD Insertion completed Yousif Yates III, MD [address] [place] [address], [phone], [employer] 01/06/2024 13:40:08 01/06/20 24 Date of Last Pap Smear completed Leanna West [employer] 02/16/2024 09:38:59 Appendectomy completed Lisssaravanan Alvarado [employer] 07/24/2023 14:23:05 Other completed Lisssaravanan Alvarado [employer] 07/24/2023 14:23:05 Gallbladder Surgery completed Liss Jolly [employer] 07/24/2023 14:23:05 primary fusion of cervical spine completed Liss Alvarado [employer] 07/24/2023 14:30:10 Imaging Results None recorded. Procedure Notes None recorded. Medical Equipment None Reported. Allergies Allergen ID Allergen Name Allergen Category Reaction Reaction Severity Criticality Documentation Date Start Date Code Code System Note Provider Name and Address Organization Details Recorded Time 57364 Zoloft medicatio n Not available Not available Not available 07/24/2023 87869 RxNorm Liss noble [employer] [employer] 14:23:53 Medications Name Sig Start Date Stop Date Status Note LastModified by Organization Details LastModified Time cyclobenzap rine 10 mg tablet TAKE 1/2-1 TABLET THREE TIMES PER DAY NEEDED FOR PAIN 01/05 completed Not Available Not Available Not Available amoxicillin 500 mg capsule TAKE 1 CAPSULE BY MOUTH TWICE A DAY FOR 10 DAYS 07/23 completed Not Available Not Available Not Available Zuleika Antifungal 2 % topical cream APPLY TO AFFECTED AREA(S) TWICE DAILY 07/23 completed Not Available Not Available Not Available fluconazole 150 mg tablet PLEASE SEE ATTACHED FOR DETAILED DIRECTION S 07/23 completed Not Available Not Available Not Available meloxicam 15 mg tablet TAKE 1 TABLET 1 TIME EACH DAY 07/23 completed Not Available Not Available Not Available phentermine 37.5 mg tablet TAKE 1 TABLET BY MOUTH EVERY DAY ADMINISTE R 30 MINUTES BEFORE OR 1-2 HOURS AFTER BREAKFAST 07/23 completed Not Available Not Available Not Available levothyroxi ne 100 mcg tablet TAKE 1 TABLET BY MOUTH EVERY DAY active Not Available Not Available No t Available prednisolon e acetate 1 % eye drops,suspe nsion INSTILL 1 DROP INTO LEFT EYE TWICE DAIY FOR 7 DAYS THEN 1 DROP ONCE DAILY FOR 7 DAYS DIRECTED 01/05 completed Not Available Not Available Not Available methocarbam ol 750 mg tablet TAKE 1 TABLET BY MOUTH THREE TIMES A DAY NEEDED 07/23 completed Not Available Not Available Not Available naproxen sodium 550 mg tablet TAKE 1 TABLET BY MOUTH EVERY 12 HOURS NEEDED 07/23 completed Not Available Not Available Not Available omeprazole 20 mg capsule,del ayed release TAKE 1 CAPSULE BY MOUTH EVERY DAY 07/23 completed Not Available Not Available Not Available methylpredn isolone 4 mg tablets in a dose pack TAKE 6 TABLETS ON DAY 1 DIRECTED ON PACKAGE AND DECREASE BY 1 TAB EACH DAY FOR A TOTAL OF 6 DAYS 01/05 completed Not Available Not Available Not Available phentermine 37.5 mg capsule Take 1 capsule every day by oral route. 02/15 completed Not Available Not Available Not Available duloxetine 20 mg capsule,del ayed release TAKE 1 CAPSULE BY MOUTH EVERY DAY 07/23 completed Not Available Not Available Not Available Mounjaro 2.5 mg/0.5 mL subcutaneou s pen injector INJECT 0.5 ML SUBCUTANE OUSLY ONE TIME PER WEEK FOR 28 DAYS 07/23 completed Not Available Not Available Not Available Vitals Date Recorded Body height Body mass index (BMI) Body weight Heart rate Oxygen saturation Oxygen saturation in Arterial blood by Pulse oximetry Systolic And Diastolic Provider Name and Address Organization Details Last Updated DateTime 4 167.64 cm 40.7 kg/m2 055999. 38 g 72 /min 98 % 98 % 113/81 mm[Hg] Liss Alvarado [employer] [employer] 4 14:32:37 Date Recorded Body height Body mass index (BMI) Body weight Heart rate Oxygen saturation Oxygen saturation in Arterial blood by Pulse oximetry Body height Body mass index (BMI) Body weight Heart rate Oxygen saturation Oxygen saturation in Arterial blood by Pulse oximetry Provider Name and Address Organization Details Last Updated DateTime 4 167.64 cm 41.9 kg/m2 220219. 3 g 78 /min 97 % 97 % 167.64 cm 41.9 kg/m2 682580. 3 g 78 /min 98 % 98 % Michelle [employer], [employer] 4 13:37:05 Date Recorded Systolic And Diastolic Systolic And Diastolic Provider Name and Address Organization Details Last Updated DateTime 01/06/2024 118/80 mm[Hg] 118/80 mm[Hg] Michelle [employer] 01/06/2024 13:36:59 Date Recorded Body height Body mass index (BMI) Body weight Heart rate Oxygen saturation Oxygen saturation in Arterial blood by Pulse oximetry Systolic And Diastolic Provider Name and Address Organization Details Last Updated DateTime 4 167.64 cm 41.5 kg/m2 037799. 68 g 81 /min 99 % 99 % 126/88 mm[Hg] Leanna Brett [employer] 4 09:41:52 Social History Question Answer Notes LastModified by Organizat ion Details LastModified Time Tobacco Smoking Status Former Smoker Liss noble [facility] [employer] 07/24/2023 14:23:04 Is Your Home Air Conditioned? Yes Information not available 07/24/2023 Do You Wear A Helmet When Biking? Yes Information not available 07/24/2023 Are You Blind Or Do You Have Difficulty Seeing? No Information n ot available 07/24/2023 What Is Your Level Of Caffeine Consumption? Moderate Information not available 07/24/2023 In The 14 Days Before Symptom Onset, Have You Had Close Contact With A Laboratory-confirm ed COVID-19 While That Case Was Ill? No Information n ot available 02/16/2024 In The 14 Days Before Symptom Onset, Have You Had Close Contact With A Person Who Is Under Investigation For COVID-19 While That Person Was Ill? No [email or web address] Information not available 02/16/2024 Have You Been To An Area Known To Be High Risk For COVID-19? No Information not available 02/16/2024 Are You Deaf Or Do You Have Serious Difficulty Hearing? No Information not available 07/24/2023 What Type Of Diet Are You Following? REGULAR Information n ot available 07/24/2023 Who Is Your Employer? [employer] Information not available 07/24/2023 How Many Days Of Moderate To Strenuous Exercise, Like A Brisk Walk, Did You Do In The Last 7 Days? 6 Information not available 07/24/2023 Have There Been Any Changes To Your Family Or Social Situation? No Information no t available 07/24/2023 When Did You Quit Smoking? 1-5yearssince lastcigarette Information not available 07/24/2023 Are There Any Guns Present In Your Home? No Information not available 07/24/2023 Which Of Your Hands Is Dominant? Right Information n ot available 07/24/2023 What Is Your Home Situation? Other Information not available 07/24/2023 What Was The Date Of Your Most Recent Tobacco Screening? 02/16/2024 [email or web address] Information not available 02/16/2024 Are There Any Occupational Health Risks Where You Work? Yes Information not available 07/24/2023 What Is Your Current Pack Years? 10packyears Information not available 07/24/2023 Do You Have Any Pets? Yes Information not available 07/24/2023 Do You Use Protection During Sex? Always Information not available 07/24/2023 What Is Your Relationship Status? Information not available 07/24/2023 Have You Repeated Any Grades? No Information not available 07/24/2023 Do You Use Your Seat Belt Or Car Seat Routinely? Yes Information not available 07/24/2023 Are You Sexually Active? Yes Information not available 07/24/2023 Do You Have Any Siblings? Yes Information not available 07/24/2023 Do You Have Smoke And Carbon Monoxide Detectors In Your Home? Yes Information not available 07/24/2023 At What Age Did You Start Smoking Tobacco? 12 Information not available 07/24/2023 Are You Passively Exposed To Smoke? No Information no t available 07/24/2023 Are There Any Smokers In Your House? No Information not available 07/24/2023 What Types Of Sporting Activities Do You Participate In? 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 Yes Information not available 07/24/2023 Has Tobacco Cessation Counseling Been Provided? Yes [email or web address] Information not available 01/06/2024 On What Date Was Tobacco Cessation Counseling Provided? 02/16/2024 [email or web address] Information not available 02/16/2024 How Many Years Have You Smoked Tobacco? 20 Information not available 07/24/2023 Have You Recently Traveled Abroad? No [email or web address] Information not available 02/16/2024 Do You Have Difficulty Walking Or Climbing Stairs? No Information not available 07/24/2023 Sex: Female Functional Status Question Answer Note LastModified by Organizat ion Details LastModified Time Do you use any illicit or recreational drugs? No Information not available 07/24/2023 Do you or have you ever used any other forms of tobacco or nicotine? No [email or web address] Information not available 01/06/2024 Are you currently employed? Yes Information not available 07/24/2023 Do you have transportation difficulties? No Information not available 07/24/2023 Are you able to walk independently without assistance or assistive devices? YESWOREST Information not available 07/24/2023 Do you have difficulty doing errands alone? No Information not available 07/24/2023 Are you able to care for yourself independently? Yes Information not available 07/24/2023 Do you have difficulty dressing, bathing, grooming, or toileting? No Information not available 07/24/2023 What is your exercise level? Moderate Information not available 07/24/2023 Mental Status Question Answer Note LastModified by Organization D etails LastModified Time Do you have difficulty concentrating, remembering or making decisions? Yes Information no t available 07/24/2023 Family History Nothing Reported. Medical History Condition Response Allergies (Food, seasonal, environmental ) N Other N Hyperthyroidism N Breast Cancer N Drug/Latex Allergies/Reactions N Blood Transfusion N Emergency room visit since last appointm ent. N Hypothyroidism N Lung Disease N Dermatologic Disorders N Defects or Inherited Disease N Breast Problem N Gestational Diabetes N Hematologic disorders N Anesthesia Complications N History of STI N Deep Vein Thrombosis N Polycystic ovary syndrome N Anxiety Disorder N Autoimmune disease N Vision or Eye Problems N Arthritis N Infertility N Polyps N Mental Disorder N Congenital Anomalies N Acid Reflux (GERD) N History of abnormal pap N Cancer N Stroke N Neurologic/Epilepsy N Endometriosis N High Cholesterol N Organ Transplant N Psychiatric/Mental Health Condition N Dialysis N Schizophrenia N Headaches N Fibromyalgia N Kidney Disease N Heart Problems N Hospitalizations N Kidney or Bladder Problems N Thyroid Problems N GI Problems N Acne N Eating Disorder N Anemia N Art (IVF or FET) N Mental Illness N Ovarian Cancer N Diabetes N Pulmonary (TB, Asthma) N Hepatitis/Liver Disease N Eczema N Abuse/Domestic Violence N Asthma N Trauma/Violence N Substance Abuse N Depression/ depression N Heart Disease N Pre-Eclampsia N Hypertension N Osteoporosis N Thrombophilias N Gynecological History Statement/Question Response Abnormal Pap Y Flow Moderate STIs/STDs N Duration of Flow (days) 5 Most Recent Mammogram Current Control Method Partner Vas ectomy Age at First Child 16 Frequency of Cycle (Q days) 24 Sexually Active? Y Menses Monthly Y Date of Last Pap Smear 01/06/2024 Sexual Problems? N LMP Approximate Obstetrics History GPAL:G 5 P 4 0 1 4 Type Value Full Term 4 Spontaneous 1 Living 4 Total 5 Immunizations Vaccine Type Date Status Note Provider Nam e and Address Organization Details Recorded Time Tdap 07/29/2022 [facility] 01/06/2024 10:01:25 Hep B, adult 11/26/2021 completed Michelle noble [facility] [employer] 01/06/2024 10:01:25 Influenza, split virus, quadrivalent, PF 11/15/2022 completed [facility] 01/06/2024 10:01:25 Influenza, split virus, quadrivalent, PF 11/23/2021 completed [facility] 01/06/2024 10:01:25 Past Encounters Encounter ID Performer Location Encounter Start Date Encounter Closed Date Diagnosis/Indication Diagnosis SNOMED-CT Code Diagnosis ICD10 Code Diagnosis IMO Codes Diagnosis Note [id number] Yuki Moore, [address] [address] 07/24/2023 13:57:43 07/24/2023 15:34:20 Screening mammography 00759609 Z12.31 Pain of le ft hip joint 4518908222 69374 M25.552 Fatigue 77769106 R53.83 Hyperlipidemia 84731796 E78.5 Vitamin D deficiency 347 77085 E55.9 Pain of joint 89388692 M 25.50 Vitamin B deficiency 479 03717 E53.9 [facility] 14045237 R 73.9 History of hematuria 161 257571 Z87.448 Body mass index 40+ - severely obese 769134632 Z68.41 [id number] Yousif Yates III, MD [facility] [address], [place] [address] 01/06/2024 09:50:56 01/06/2024 12:29:08 Body mass index 40+ - severely obese 998281247 Z68.41 Gynecologi c examination normal 9127670729 Z01.784 [id number] Yousif Yates III, MD [facility] [address], [place] [address] 01/06/2024 13:35:23 01/06/2024 14:49:26 Contraception care management 898708032 Z30.9 Insertion of intrauterine contraceptive device 01922117 Z30.525 [id number] Rosita Ambrose APRN [facility] [address], [place] [address] 02/16/2024 09:37:10 02/16/2024 10:22:41 Removal of intrauterine contraceptive device done 1977588538 51750 Z30.432 Health Concerns Section Related Observation LastModified by Organization Detai ls LastModified Time None Recorded Concern Status LastModified by Organization Details LastModified Time None Recorded Advance Directives Directive None Recorded Payers Insurance Date Sequence Insurance Name Policy Number Policy Guo Covered Member ID Guo Member ID Guarantor Name 07/24/2023 1 *SELF PAY* Francia Javed 02/14/2024 1 [place] [id number] 3 Harrison Javed [id number] Estrella Javed Notes Date Note Type Note Provider Name and Address Organization Details Recorded Time 07/24/2023 text/html pt here today to est PCP. pt c/o bilateral hip pain with left hip being the worse. 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 pt states that when she sits on the couch and watches a movie she will have pain when she gets up. pt pain starts at left mid buttock and goes down into her hip. pt denies any numbness or tingling in LLE. on exam, pt has tenderness to left buttock and left hip almost in groin area. pt denies and pain in am but states that pain is worse at night. i will order xray and labs. pt also c/o pain in pelvic area that has been going on/off for around 7 years. pt states that she was being worked up for it 7 years ago and then found out she was and didnt go back for testing. pt states back then she had micro blood in urine and she went to urology and didnt have the scope. pt denies any dysuria or hematuria. pt states that she does not think is is related to any issues dealing with her uterus or cervix but thinks its bladder related. pt states that the pain is on/off and it is dull and mostly to the left. pt denies pain today. pt states that last pap was in 2019. will have pt come back in for pap. if neg then will do US. pt voiced understanding. will order UA. pt also states that a couple of weeks ago she hyperextended her left knee and has gotten better but her left foot has swelling. pt does have a hx of left foot break around 12 years ago. on exam, pt has 1-2+ edema in left foot. advised pt to wear compression stockings, elevate, low sodium diet. pt voiced understanding. Yuki Moore APRN [address] [place], [address], [employer] 07/24/2023 18:24:44 01/06/2024 text/html Seen earlier today for annual exam and to start care here. She reutrns to get Mirnea placed. Yousif Yates III, MD [address] [place], [address], [employer] 01/06/2024 13:41:51 01/06/2024 text/html . 's. Vasectomy. Former smoker. Gallbladder, Appy. Hypothyroid. 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 It has been several r=years. Abn pap with LEEP about 20 yrs ago. Menses getting heavier. Last 55 days. Changes tampons 8 times per day. She wants an IUD to help control menses. 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 Yousif Yates III, MD [address] [place], [phone], [employer] 01/06/2024 11:14:23 02/16/2024 text/html ROS as noted in the HPI Pt presents for removal of her IUD. She had a mirena placed a month ago, and she states she has had non stop bleeding. We discussed this is normal and is typically self limiting, but she is not interested in trialing aygestin and just wants the device removed. No other complaints or concerns today. Rosita Ambrose APRN [address] [place], [address], [employer] 02/16/2024 09:57:41 OBGyn Episode Ob Episode Information Episode Created Date Number of Fetuses Patient Bloodtype Patient rh Status Prepregnancy Weight lbs Domestic Partner Domestic Partner Phone Father Name Equipment Maintenance Tech Status 01/06/20 24 1 CLOSED Fetus Data First Name Last Name Admitted to NICU Weight (g) Sex Living Outcome Pediatric Complications Fetus ID Race Codes Race Delivery Type M [id number] Vaginal Delivery Gaston Calculation Initial Gaston Date Initial Exam Date Initial Exam Provider Initial Ultrasound Date Last Menstrual Period Date Ultra Sound Weeks Gestation 0 Eighteen To Twenty Week Gaston Update Ultra Sound Date Fundal Height At Umbil Quickening Date Ultra Sound Latest Weeks Gestation Final Gaston Confirmed By Final Gaston Confirmed Date Final Gaston Date Ultra Sound Latest Days Gestation 0 0 Menstrual History Last Menstrual Date Menses Monthly On Bcp Conception Prior Menses Frequency Hcg Plus Date Menarche Onset Age Delivery Information Delivery Date Delivery Type Labor Anesthesia Weeks Gestation Incision Type Labor Labor Length Hrs Delivered By Post Complications Tubal Sterilization Discharge Date Comments 1 Discharge Information Feeding Method Contraceptive Method Maternal HG B and HCT Levels Ob Episode Information Episode Created Date Number of Fetuses Patient Bloodtype Patient rh Status Prepregnancy Weight lbs Domestic Partner Domestic Partner Phone Father Name Equipment Maintenance Tech Status 01/06/20 24 1 CLOSED Fetus Data First Name Last Name Admitted to NICU Weight (g) Sex Living Outcome Pediatric Complications Fetus ID Race Codes Race Delivery Type M [id number] Vaginal Delivery Gaston Calculation Initial Gaston Date Initial Exam Date Initial Exam Provider Initial Ultrasound Date Last Menstrual Period Date Ultra Sound Weeks Gestation 0 Eighteen To Twenty Week Gaston Update Ultra Sound Date Fundal Height At Umbil Quickening Date Ultra Sound Latest Weeks Gestation Final Gaston Confirmed By Final Gaston Confirmed Date Final Gaston Date Ultra Sound Latest Days Gestation 0 0 Menstrual History Last Menstrual Date Menses Monthly On Bcp Conception Prior Menses Frequency Hcg Plus Date Menarche Onset Age Delivery Information Delivery Date Delivery Type Labor Anesthesia Weeks Gestation Incision Type Labor Labor Length Hrs Delivered By Post Complications Tubal Sterilization Discharge Date Comments 7 Discharge Information Feeding Method Contraceptive Method Maternal HG B and HCT Levels Ob Episode Information Episode Created Date Number of Fetuses Patient Bloodtype Patient rh Status Prepregnancy Weight lbs Domestic Partner Domestic Partner Phone Father Name Equipment Maintenance Tech Status 01/06/20 24 1 CLOSED Fetus Data First Name Last Name Admitted to NICU Weight (g) Sex Living Outcome Pediatric Complications Fetus ID Race Codes Race Delivery Type M [id number] Vaginal Delivery Gaston Calculation Initial Gaston Date Initial Exam Date Initial Exam Provider Initial Ultrasound Date Last Menstrual Period Date Ultra Sound Weeks Gestation 0 Eighteen To Twenty Week Gaston Update Ultra Sound Date Fundal Height At Umbil Quickening Date Ultra Sound Latest Weeks Gestation Final Gaston Confirmed By Final Gaston Confirmed Date Final Gaston Date Ultra Sound Latest Days Gestation 0 0 Menstrual History Last Menstrual Date Menses Monthly On Bcp Conception Prior Menses Frequency Hcg Plus Date Menarche Onset Age Delivery Information Delivery Date Delivery Type Labor Anesthesia Weeks Gestation Incision Type Labor Labor Length Hrs Delivered By Post Complications Tubal Sterilization Discharge Date Comments 7 Discharge Information Feeding Method Contraceptive Method Maternal HG B and HCT Levels Ob Episode Information Episode Created Date Number of Fetuses Patient Bloodtype Patient rh Status Prepregnancy Weight lbs Domestic Partner Domestic Partner Phone Father Name Equipment Maintenance Tech Status 01/06/20 24 1 CLOSED Fetus Data First Name Last Name Admitted to NICU Weight (g) Sex Living Outcome Pediatric Complications Fetus ID Race Codes Race Delivery Type M [id number] Vaginal Delivery Gaston Calculation Initial Gaston Date Initial Exam Date Initial Exam Provider Initial Ultrasound Date Last Menstrual Period Date Ultra Sound Weeks Gestation 0 Eighteen To Twenty Week Gaston Update Ultra Sound Date Fundal Height At Umbil Quickening Date Ultra Sound Latest Weeks Gestation Final Gaston Confirmed By Final Gaston Confirmed Date Final Gaston Date Ultra Sound Latest Days Gestation 0 0 Menstrual History Last Menstrual Date Menses Monthly On Bcp Conception Prior Menses Frequency Hcg Plus Date Menarche Onset Age Delivery Information Delivery Date Delivery Type Labor Anesthesia Weeks Gestation Incision Type Labor Labor Length Hrs Delivered By Post Complications Tubal Sterilization Discharge Date Comments 5 Discharge Information Feeding Method Contraceptive Method Maternal HG B and HCT Levels
--- OUTSIDE RECORDS SUMMARY | 2025-01-05 08:14 | XMS_ITS | Clinical Summary ---
Author Organization [employer] ([place], [place], [place], [place], [place]) Address [address] [place] [address] Care Team Providers Care Facial Operator Name Role Phone Pancho Lancaster MD Primary Care Provider [phone]- [phone] Allergies Active Allergy Reactions Criticality Noted Date Comments Sertraline Anxiety Low 04/08/2017 palpitations Medications DULoxetine (CYMBALTA) 20 MG capsule Take 1 capsule (20 mg total) by mouth daily. 07/20/2022 Active levothyroxine (SYNTHROID, LEVOTHROID) 100 MCG tablet Take 1 tablet (100 mcg total) by mouth daily. 06/04/2023 Active hydrOXYzine (ATARAX) 25 MG tablet Take 1 tablet (25 mg total) by mouth every night as needed (sleep) Look-alike /Sound-alike medication . 15 tablet 11/08/2024 Active Active Problems Problem Noted Date Diagnosed Date Greater trochanteric bursitis of left hip 2023 Sacroiliitis (HCC), Left 07/29/2023 Facet arthropathy, lumbar 07/29/2023 Femoral acetabular impingement, Left 07/29/2023 Encounters Date Type Department Care Team Description 11/19/2024 5:17 PM EDT - 11/19/2024 6:19 PM EDT Emergency [facility] Emergency Department [address] [place] [phone] Khalida Whalen MD Chest wall pain (Primary Dx) Discharge Disposition: Home or Self Care 11/19/2024 Travel 11/07/2024 11:03 PM EDT - 11/08/2024 1:38 AM EDT Emergency [facility] Emergency Department [address] [place] [address] Michaelle Singh MD Chest pain, unspecified (Primary Dx); Chest pain, unspecified type Discharge Disposition: Home or Self Care 11/07/2024 Travel from Last 3 Months Social History Tobacco Use Types Packs/Day Years [...] Date Evelio rded Speak language other than Burkinan at home Not on file 03/08/2023 Want [...] Pulse 83 11/19/2024 3:18 PM EDT Temperature 35.7 C (96.3 F) 11/07/2024 11:15 PM EDT Respiratory Rate 18 11/19/2024 6:19 PM EDT Oxygen Saturation 98% 11/19/2024 6:19 PM EDT Inhaled Oxygen Concentration - - Weight 117.9 kg (260 lb) 11/19/2024 3:18 PM EDT Height 167.6 cm (5' 6 ) 11/19/2024 3:18 PM EDT Body Mass Index 41.97 11/19/2024 3:18 PM EDT Plan of Treatment Health Maintenance Due Date [...] d or Tdap) 07/29/2032 07/29/2022, 12/07/2015, 04/20/2003 Procedures Procedure Name Priority Date/Time Associated Diagnosis Comments HIGH SENSITIVITY TROPONIN I STAT 11/19/2024 3:43 PM EDT MAGNESIUM STAT 11/19/2024 3:43 PM EDT COMPREHENSIVE METABOLIC PANEL STAT 11/19/2024 3:43 PM EDT CBC W/ AUTO DIFF STAT 11/19/2024 3:43 PM EDT FS_MODEL_IP_ECG 12-LEAD Routine 11/19/2024 3:18 PM EDT FOLLICLE STIMULATING HORMONE(SENDOUT) STAT 11/08/2024 4:56 PM EDT MAGNESIUM STAT 11/07/2024 11:48 PM EDT PROBNP STAT 11/07/2024 11:48 PM EDT [place] RED TOP (EXTRA TUBES) STAT 11/07/2024 11:48 PM EDT [place] BLUE TOP (EXTRA TUBES) STAT 11/07/2024 11:48 PM EDT HIGH SENSITIVITY TROPONIN I STAT 11/07/2024 11:48 PM EDT LIPASE STAT 11/07/2024 11:48 PM EDT COMPREHENSIVE METABOLIC PANEL STAT 11/07/2024 11:48 PM EDT CBC W/ AUTO DIFF STAT 11/07/2024 11:4 8 PM EDT [place] EXTRA TUBES STAT 11/07/2024 11:48 PM EDT XR CHEST 1 VIEW PORTABLE / BEDSIDE STAT 11/07/2024 11:34 PM EDT FS_MODEL_IP_ECG 12-LEAD STAT 11/07/2024 11:11 PM EDT from Last 3 Months Results * (ABNORMAL) CBC with Auto Diff (11/19/2024 3:43 PM EDT) Only the most recent of2 resultswithin the time period is included. WBC 7.5 4.8 - 10.8 K/ L 11/19/2024 3:47 PM EDT [facility] RBC 4.67 3.50 - 5.20 M/ L 11/19/2024 3:47 PM EDT [facility] Hemoglobin 14.5 11.7 - 15.8 GM/DL 11/19/2024 3:47 PM EDT [facility] Hematocrit 41.8 35.0 - 47.0 % 11/19/2024 3:47 PM EDT [facility] MCV 90 81 - 101 fL 11/19/2024 3:47 PM EDT [facility] MCH 31.0 27.0 - 34.0 pg 11/19/2024 3:47 PM EDT [facility] MCHC 34.7 32.0 - 36.0 GM/DL 11/19/2024 3:47 PM EDT [facility] RDW 11.9 11.5 - 14.5 % 11/19/2024 3:47 PM EDT [facility] Platelets 217 150 - 400 K/CU MM 11/19/2024 3:47 PM EDT [facility] MPV 9.8 9.4 - 12.4 fL 11/19/2024 3:47 PM EDT [facility] Nucleated Red Blood Cell 0.0 0 - 0.2 % 11/19/2024 3:47 PM EDT [facility] % Neutros 64 37 - 80 % 11/19/2024 3:47 PM EDT [facility] % Lymphs 27 10 - 50 % 11/19/2024 3:47 PM EDT [facility] % Monos 7 5 - 13 % 11/19/2024 3:47 PM EDT [facility] % Eos 1 0 - 7 % 11/19/2024 3:47 PM EDT [facility] % Baso 1 0 - 3 % 11/19/2024 3:47 PM EDT [facility] NRBC Absolute <0.01 0 - 0.012 K/ul 11/19/2024 3:47 PM EDT [facility] # Neutros 4.77 2.00 - 6.90 K/ L 11/19/2024 3:47 PM EDT [facility] # Lymphs 1.98 0.60 - 3.40 K/ L 11/19/2024 3:47 PM EDT [facility] # Monos 0.55 0.00 - 0.90 K/ L 11/19/2024 3:47 PM EDT [facility] # Eos 0.10 0.00 - 0.70 K/ L 11/19/2024 3:47 PM EDT [facility] # Baso 0.05 0.00 - 0.20 K/ L 11/19/2024 3:47 PM EDT [facility] % Imm Grans 0.40 % 11/19/2024 3:47 PM EDT [facility] # IG 0.03(H) 0.00 - 0.00 K/uL 11/19/2024 3:47 PM EDT [facility] Blood Venipuncture / Unknown 11/19/2024 3:43 PM EDT 11/19/2024 3:43 PM EDT Narrative [facility] - 11/19/2024 3:47 PM EDT When [...] MD LAB BLOOD ORDERABLES Final Resu lt Performing Organization Address City/[facility]/ZIP Co de Phone Number [facility] [address] [place] [address] * High Sensitivity Troponin I (11/19/2024 3:43 PM EDT) Only the most recent of2 resultswithin the time period is included. Troponin I High Sensitivity (pg/mL) 5.5 4 - 60.3 pg/mL 11/19/2024 4:24 PM EDT [facility] Comment: Troponin Result (pg/mL) *Interpretation 4-60.3 [...] MD LAB BLOOD ORDERABLES Final Resu lt [facility] [address] [place] [address] * Magnesium (11/19/2024 3:43 PM EDT) Only the most recent of2 resultswithin the time period is included. Magnesium 1.8 1.8 - 2.4 mg/dL 11/19/2024 4:24 PM EDT [facility] Blood Venipuncture / Unknown 11/19/2024 3:43 PM EDT 11/19/2024 3:43 PM EDT us Khalida Whalen MD LAB BLOOD ORDERABLES Final Resu lt [facility] [address] [phone] * (ABNORMAL) Comprehensive metabolic panel (11/19/2024 3:43 PM EDT) Only the most recent of2 resultswithin the time period is included. Sodium 140 136 - 145 meq/L 11/19/2024 4:24 PM EDT [facility] Potassium 3.7 3.5 - 5.1 meq/L 11/19/2024 4:24 PM EDT [facility] Chloride 104 98 - 107 meq/L 11/19/2024 4:24 PM EDT [facility] CO2 27 21 - 32 meq/L 11/19/2024 4:24 PM EDT [facility] Calcium 9.1 8.5 - 10.1 mg/dL 11/19/2024 4:24 PM EDT [facility] Glucose 107(H) 74 - 100 mg/dL 11/19/2024 4:24 PM EDT [facility] BUN 10 7 - 18 mg/dL 11/19/2024 4:24 PM EDT [facility] Creatinine 0.76 0.55 - 1.10 mg/dL 11/19/2024 4:24 PM EDT [facility] BUN/Creatinine 13 11/19/2024 4:24 PM EDT [facility] Albumin 3.6 3.4 - 5.0 g/dL 11/19/2024 4:24 PM EDT [facility] Alkaline Phosphatase 60 46 - 116 U/L 11/19/2024 4:24 PM EDT [facility] ALT 28 12 - 78 U/L 11/19/2024 4:24 PM EDT [facility] AST 18 15 - 37 U/L 11/19/2024 4:24 PM EDT [facility] Total Bilirubin 0.5 0.2 - 1.0 mg/dL 11/19/2024 4:24 PM EDT [facility] Protein, Total 7.3 6.4 - 8.2 gm/dL 11/19/2024 4:24 PM EDT [facility] Anion Gap 13 11 - 22 11/19/2024 4:24 PM EDT [facility] A/G Ratio 1.0 11/19/2024 4:24 PM EDT [facility] Globulin 3.7 g/dL 11/19/2024 4:24 PM EDT [facility] Osmolality Calc 278.9 mOsm/kg 4:24 PM EDT [facility] eGFR (mL/min/1.73m2) >60 >=60 mL/min/1.7 3m2 11/19/2024 4:24 PM EDT [facility] Comment:ESTIMATED GFR IS NOT ACCURATE CREATININE CLEARANCE IN PREDICTING GLOMERULAR FILTRATION RATE. ESTIMATED GFR IS NOT APPLICABLE FOR DIALYSIS PATIENTS. Blood Venipuncture / Unknown 11/19/2024 3:43 PM EDT 11/19/2024 3:43 PM EDT us Khalida Whalen MD LAB BLOOD ORDERABLES Final Resu lt [facility] [address] [place] [address] * ECG 12 lead (11/19/2024 3:18 PM EDT) Only the most recent of2 resultswithin the time period is included. VENTRICULAR RATE EKG/MIN 78 BPM GE MUSE ATRIAL RATE (MCT) 78 BPM GE MUSE NE Interval 146 ms GE MUSE QRS-INTERVAL (MSEC) 82 ms GE MUSE QT Interval 348 ms GE MUSE QTC Interval 396 ms GE MUSE P [place] 43 degrees GE MUSE R AXIS (MCT) -2 degrees GE MUSE T Wave [place] 12 degrees GE MUSE [place] Diagnosis Normal sinus rhythm Normal ECG When compared with ECG of 07-NOV-2024 23:11, Borderline criteria for Anterior infarct are no longer present Confirmed by Baldomero JAVED, XAVI ([id number]) on 11/19/2024 4:14:07 PM GE MUSE 11/19/2024 3:18 PM EDT 11/19/2024 4:14 PM EDT us Khalida Whalen MD ECG ORDERABLES Final Result GE MUSE * FOLLICLE STIMULATING HORMONE(SENDOUT) (11/08/2024 4:56 PM EDT) Follicle Stimulating Hormone 9.6 IU/L 11/11/2024 3:25 AM EDT [employer] Comment: INTERPRETIVE INFORMATION: Follicle Stimulating Hormone Females: Follicular: 3.5-12.5 IU/L Mid-Cycle: 4.7-21.5 IU/L Luteal: 1.7-7.7 IU/L Postmenopausal: 25.8-134.8 IU/L REFERENCE INTERVAL: Follicle Stimulating Hormone Access complete set of age- and/or gender-specific reference intervals for this test in the [facility] Test Directory ([employer]). Performed By: [employer] [address] [place] [id number] [employer] Consultant: Louie Olsen MD, PhD CLIA Number: [id number] Blood Venipuncture / Unknown 11/08/2024 4:56 PM EDT 11/08/2024 4:56 PM EDT us Pancho Lancaster MD LAB BLOOD ORDERABLES Final Result [employer] [address] [place] [address], [facility] [phone] * Red Top Extra Tubes (11/07/2024 11:48 PM EDT) HOLD SPECIMEN (SJ - BKR) Hold for add-ons. 11/08/2024 1:01 AM EDT [facility] Comment:Auto resulted. Blood (Blood, Veinous) Venipuncture / Unknown 11/07/2024 11:48 PM EDT 11/07/2024 11:52 PM EDT Michaelle Singh MD LAB BLOOD ORDERABLES Final Res ult Performing Organization Address [facility] Co de Phone Number [facility] [address] [place] [address], [facility] [phone] * Blue Top Extra Tubes (11/07/2024 11:48 PM EDT) HOLD SPECIMEN (SJ - BKR) Hold for add-ons. 11/08/2024 1:01 AM EDT [facility] Comment:Auto resulted. Blood (Blood, Veinous) Venipuncture / Unknown 11/07/2024 11:48 PM EDT 11/07/2024 11:51 PM EDT Michaelle Singh MD LAB BLOOD ORDERABLES Final Res ult Performing Organization Address [facility]/ZIP Co de Phone Number [facility] [address] [phone] * PROBNP (11/07/2024 11:48 PM EDT) ProBNP (pg/mL) 117 5 - 125 pg/mL 11/08/2024 12:39 AM EDT [facility] Blood Venipuncture / Unknown 11/07/2024 11:48 PM EDT 11/07/2024 11:52 PM EDT Narrative [facility] - 11/08/2024 12:39 AM EDT Biotin supplements can cause clinically significant incorrect lab test results. The FDA has seen an increase in the number of reported adverse events related to biotin interference with lab tests. us Michaelle Singh MD LAB BLOOD ORDERABLES Final Res ult Performing Organization Address City/[facility]/ZIP Co de Phone Number [facility] [address] [place] [address] * Lipase (11/07/2024 11:48 PM EDT) Lipase 22 16 - 77 U/L 11/08/2024 12:39 AM EDT [facility] Blood Venipuncture / Unknown 11/07/2024 11:48 PM EDT 11/07/2024 11:52 PM EDT us Michaelle Singh MD LAB BLOOD ORDERABLES Final Res ult Performing Organization Address City/[facility]/ZIP Co de Phone Number [facility] [address] [place] [address], [facility] [phone] * XR chest 1 view portable / [...] IMG DIAGNOSTIC IMAGING ORDERAB LES Final Result from Last 3 Months Insurance BLUE CROSS/BLUE SHIELD Care Teams Facial Operator Relationship Specialty Start Date End Date Pancho Lancaster MD [address] [place] [address] [place] [id number] PCP - General Family Medicine 12/11/22
--- OUTSIDE RECORDS SUMMARY | 2025-01-05 08:14 | XMS_ITS | Referral Summary ---
Author Organization [employer] ([place], [place], [place], [place], [place]) Address [address] [place] [address] Care Team Providers Care Meeting/Event Planner Name Role Phone Pancho Lancaster MD Primary Care Provider [phone]- [phone] Encounters Date Type Department Care Team Description 11/19/2024 Travel 11/19/2024 5:17 PM EDT - 11/19/2024 6:19 PM EDT Emergency [facility] Emergency Department [address] [place] [phone] Khalida Whalen MD Chest wall pain (Primary Dx) Discharge Disposition: Home or Self Care 11/07/2024 11:03 PM EDT - 11/08/2024 1:38 AM EDT Emergency [facility] Emergency Department [address] [place] [phone] Michaelle Singh MD Chest pain, unspecified (Primary Dx); Chest pain, unspecified type Discharge Disposition: Home or Self Care 11/07/2024 Travel from Last 3 Months Allergies Active Allergy Reactions Criticality Noted Date [...] Date Evelio rded Speak language other than Uzbek at home Not on file 03/08/2023 Want [...] 11/19/2024 3:18 PM EDT Plan of Treatment Not on file Procedures Procedure Name Priority Date/Time Associated Diagnosis [...] 10.8 K/ L 11/19/2024 3:47 PM EDT [facility] RBC 4.67 3.50 - 5.20 M/ L 11/19/2024 3:47 PM EDT [facility] Hemoglobin 14.5 11.7 - 15.8 GM/DL 11/19/2024 3:47 PM EDT [facility] Hematocrit 41.8 35.0 - 47.0 % 11/19/2024 3:47 PM EDT [facility] MCV 90 81 - 101 fL 11/19/2024 3:47 PM EDT [facility] MCH 31.0 27.0 - 34.0 pg 11/19/2024 3:47 PM EDT [facility] MCHC 34.7 32.0 - 36.0 GM/DL 11/19/2024 3:47 PM EDT [facility] RDW 11.9 11.5 - 14.5 % 11/19/2024 3:47 PM EDT [facility] Platelets 217 150 - 400 K/CU MM 11/19/2024 3:47 PM EDT [facility] MPV 9.8 9.4 - 12.4 fL 11/19/2024 3:47 PM EDT [facility] Nucleated Red Blood Cell 0.0 0 - 0.2 % 11/19/2024 3:47 PM EDT [facility] % Neutros 64 37 - 80 % 11/19/2024 3:47 PM EDT [facility] % Lymphs 27 10 - 50 % 11/19/2024 3:47 PM EDT [facility] % Monos 7 5 - 13 % 11/19/2024 3:47 PM EDT [facility] % Eos 1 0 - 7 % 11/19/2024 3:47 PM EDT [facility] % Baso 1 0 - 3 % 11/19/2024 3:47 PM EDT [facility] NRBC Absolute <0.01 0 - 0.012 K/ul 11/19/2024 3:47 PM EDT [facility] # Neutros 4.77 2.00 - 6.90 K/ L 11/19/2024 3:47 PM EDT [facility] # Lymphs 1.98 0.60 - 3.40 K/ L 11/19/2024 3:47 PM EDT [facility] # Monos 0.55 0.00 - 0.90 K/ L 11/19/2024 3:47 PM EDT [facility] # Eos 0.10 0.00 - 0.70 K/ L 11/19/2024 3:47 PM EDT [facility] # Baso 0.05 0.00 - 0.20 K/ L 11/19/2024 3:47 PM EDT [facility] % Imm Grans 0.40 % 11/19/2024 3:47 PM EDT [facility] # IG 0.03(H) 0.00 - 0.00 K/uL 11/19/2024 3:47 PM EDT [facility] Blood Venipuncture / Unknown 11/19/2024 3:43 PM EDT 11/19/2024 3:43 PM EDT Narrative [facility] - 11/19/2024 3:47 PM [...] MD LAB BLOOD ORDERABLES Final Resu lt [facility] [address] [place] [id number] [phone] * High Sensitivity Troponin I (11/19/2024 3:43 PM EDT) Only the most recent of2 resultswithin the time period is included. [facility] Troponin I High Sensitivity (pg/mL) 5.5 4 - 60.3 pg/mL 11/19/2024 4:24 PM EDT [facility] Comment: Troponin Result (pg/mL) [...] ORDERABLES Final Resu lt Performing Organization Address City/[facility]/ZIP Co de Phone Number [facility] [address] [phone] * Magnesium (11/19/2024 3:43 PM EDT) Only the most recent of2 resultswithin the time period is included. [facility] Magnesium 1.8 1.8 - 2.4 mg/dL 11/19/2024 4:24 PM EDT [facility] Blood Venipuncture / Unknown 11/19/2024 3:43 PM EDT 11/19/2024 3:43 PM EDT us Khalida Whalen MD LAB BLOOD ORDERABLES Final Resu lt [facility] [address] [place] [address], [facility] [phone] * (ABNORMAL) Comprehensive metabolic panel (11/19/2024 3:43 PM EDT) Only the most recent of2 resultswithin the time period is included. Sodium 140 136 - 145 meq/L 11/19/2024 4:24 PM EDT [facility] Potassium 3.7 3.5 - 5.1 meq/L 11/19/2024 4:24 PM EDT [facility] Chloride 104 98 - 107 meq/L 11/19/2024 4:24 PM EDT [facility] CO2 27 21 - 32 meq/L 11/19/2024 4:24 PM EDT [facility] Calcium 9.1 8.5 - 10.1 mg/dL 11/19/2024 4:24 PM EDT [facility] Glucose 107(H) 74 - 100 mg/dL 11/19/2024 4:24 PM EDT [facility] BUN 10 7 - 18 mg/dL 11/19/2024 4:24 PM EDT [facility] Creatinine 0.76 0.55 - 1.10 mg/dL 11/19/2024 4:24 PM EDT [facility] BUN/Creatinine 13 11/19/2024 4:24 PM EDT [facility] Albumin 3.6 3.4 - 5.0 g/dL 11/19/2024 4:24 PM EDT [facility] Alkaline Phosphatase 60 46 - 116 U/L 11/19/2024 4:24 PM EDT [facility] ALT 28 12 - 78 U/L 11/19/2024 4:24 PM EDT [facility] AST 18 15 - 37 U/L 11/19/2024 4:24 PM EDT [facility] Total Bilirubin 0.5 0.2 - 1.0 mg/dL 11/19/2024 4:24 PM EDT [facility] Protein, Total 7.3 6.4 - 8.2 gm/dL 11/19/2024 4:24 PM EDT [facility] Anion Gap 13 11 - 22 11/19/2024 4:24 PM EDT [facility] A/G Ratio 1.0 11/19/2024 4:24 PM EDT [facility] Globulin 3.7 g/dL 11/19/2024 4:24 PM EDT [facility] Osmolality Calc 278.9 mOsm/kg 4:24 PM EDT [facility] eGFR (mL/min/1.73m2) >60 >=60 mL/min/1.7 3m2 11/19/2024 4:24 PM EDT [facility] Comment:ESTIMATED GFR IS NOT ACCURATE CREATININE CLEARANCE IN PREDICTING GLOMERULAR FILTRATION RATE. ESTIMATED GFR IS NOT APPLICABLE FOR DIALYSIS PATIENTS. Blood Venipuncture / Unknown 11/19/2024 3:43 PM EDT 11/19/2024 3:43 PM EDT Khalida Whalen MD LAB BLOOD ORDERABLES Final Resu lt [facility] [address] [place] [address] * ECG 12 lead (11/19/2024 3:18 PM EDT) Only the most recent of2 resultswithin the time period is included. VENTRICULAR RATE EKG/MIN 78 BPM GE MUSE ATRIAL RATE (MCT) 78 BPM GE MUSE [place] Interval 146 ms GE MUSE QRS-INTERVAL (MSEC) 82 ms GE MUSE QT Interval 348 ms GE MUSE QTC Interval 396 ms GE MUSE P [place] 43 degrees GE MUSE R AXIS (MCT) -2 degrees GE MUSE T Wave [place] 12 degrees GE MUSE [place] Diagnosis Normal sinus rhythm Normal ECG When compared with ECG of 07-NOV-2024 23:11, Borderline criteria for Anterior infarct are no longer present Confirmed by Baldomero JAVED, XAVI ([id number]) on 11/19/2024 4:14:07 PM GE MUSE 11/19/2024 3:18 PM EDT 11/19/2024 4:14 PM EDT Khalida Whalen MD ECG ORDERABLES Final Result Performing Organization Address City/[facility]/ZIP Co de Phone Number GE M[facility] * FOLLICLE STIMULATING HORMONE(SENDOUT) (11/08/2024 4:56 PM EDT) Follicle Stimulating Hormone 9.6 IU/L 11/11/2024 3:25 AM EDT [employer] Comment: INTERPRETIVE INFORMATION: Follicle Stimulating Hormone Females: Follicular: 3.5-12.5 IU/L Mid-Cycle: 4.7-21.5 IU/L Luteal: 1.7-7.7 IU/L Postmenopausal: 25.8-134.8 IU/L REFERENCE INTERVAL: Follicle Stimulating Hormone Access complete set of age- and/or gender-specific reference intervals for this test in the [facility] Test Directory ([employer]). Performed By: [facility] [address] [place] [address] Community Nurse: Louie Olsen MD, PhD CLIA Number: [id number] Blood Venipuncture / Unknown 11/08/2024 4:56 PM EDT 11/08/2024 4:56 PM EDT us Pancho Lancaster MD LAB BLOOD ORDERABLES Final Result [facility] [address] [place] [address], [facility] [phone] * Red Top Extra Tubes (11/07/2024 11:48 PM EDT) HOLD SPECIMEN (SJ - BKR) Hold for add-ons. 11/08/2024 1:01 AM EDT [facility] Comment:Auto resulted. Blood (Blood, Veinous) Venipuncture / Unknown 11/07/2024 11:48 PM EDT 11/07/2024 11:52 PM EDT us Michaelle Singh MD LAB BLOOD ORDERABLES Final Res ult [facility] [address] [place] [address], [facility] [phone] * Blue Top Extra Tubes (11/07/2024 11:48 PM EDT) HOLD SPECIMEN (SJ - BKR) Hold for add-ons. 11/08/2024 1:01 AM EDT [facility] Comment:Auto resulted. Blood (Blood, Veinous) Venipuncture / Unknown 11/07/2024 11:48 PM EDT 11/07/2024 11:51 PM EDT us Michaelle Singh MD LAB BLOOD ORDERABLES Final Res ult [facility] [address] [place] [address] * PROBNP (11/07/2024 11:48 PM EDT) [facility] ProBNP (pg/mL) 117 5 - 125 pg/mL 11/08/2024 12:39 AM EDT [facility] Blood Venipuncture / Unknown 11/07/2024 11:48 PM EDT 11/07/2024 11:52 PM EDT Narrative [facility] - 11/08/2024 12:39 AM EDT Biotin supplements can cause clinically significant incorrect lab test results. The FDA has seen an increase in the number of reported adverse events related to biotin interference with lab tests. us Michaelle Singh MD LAB BLOOD ORDERABLES Final Res ult [facility] [address] [place] [address] * Lipase (11/07/2024 11:48 PM EDT) [facility] Lipase 22 16 - 77 U/L 11/08/2024 12:39 AM EDT [facility] Blood Venipuncture / Unknown 11/07/2024 11:48 PM EDT 11/07/2024 11:52 PM EDT us Michaelle Singh MD LAB BLOOD ORDERABLES Final Res ult [facility] [address] [id number], [facility] [phone] * XR chest 1 view portable / [...] Teresita Mcmanus. Transcribed by Nicola Kilgore PA-C. Michaelle Singh MD IMG DIAGNOSTIC IMAGING ORDERAB LES Final Result from Last 3 Months Insurance BLUE CROSS/BLUE SHIELD Care Teams Meeting/Event Planner Relationship Specialty Start Date End Date Pancho Lancaster MD [address] [place] [id number] PCP - General Family Medicine 12/11/22
--- OUTSIDE RECORDS SUMMARY | 2025-01-05 08:14 | XMS_ITS | Encounter Summary ---
Author Organization [employer] ([place], [place], [place], [place], [place]) Address [address] [place] [address] Care Team Providers Care Second Crusher Name Role Phone Pancho Lancaster MD Primary Care Provider [phone] Encounter Details Date Type Department Care Team (Latest Contact Info) Description 11/19/2024 Travel Social History Tobacco Use Types Packs/Day Years [...] Date Evelio rded Speak language other than [place] at home Not on file 03/08/2023 Want [...] on file documented as of this encounter Plan of Treatment Not on file documented as of this encounter Visit Diagnoses Not on filedocumented in this encounter Care Teams Second Crusher Relationship Specialty Start Date End Date Pancho Lancaster MD [address] [place] [address] [address] PCP - General Family Medicine 12/11/22 documented as of this encounter
--- OUTSIDE RECORDS SUMMARY | 2025-01-05 08:15 | XMS_ITS | Clinical Summary ---
Author Organization [facility] Address [address] [id number] Care Team Providers Care Emergency Specialist Name Role Phone Natasha Nick Primary Care Provider [phone] Allergies Active Allergy Reactions Criticality Noted Date [...] esult from Last 3 Months Insurance PPO Member Subscriber Plan / Payer (Ef fective 2023-Present) Name:Estrella Javed Relation to Subscriber:Spouse Name:LARS JAVED Date of :1978 (Home) Address: [address] [place] [address] Payer ID:[id number] (NAIC) Type:Not on file Address: [facility] [id number] [id number] Care Teams Emergency Specialist Relationship Specialty Start Date End Date Natasha Nick PA [address] [place] [address] [address] [id number] PCP - General Family Medicine 08/14/23
--- OUTSIDE RECORDS SUMMARY | 2025-01-05 08:15 | XMS_ITS | Clinical Summary ---
Author Organization Healthcare Address [facility] [place] [id number] Care Team Providers Care Extrusion Press Supervisor Name Role Phone Natasha Nick Primary Care Provider [phone] Allergies Active Allergy Reactions Criticality Noted Date Comments Sertraline Anxiety Low 04/08/2017 palpitations palpitations Immunizations Immunization Administration Dates Next Due Hep B, adult 11/26/2021,04/20/2003 Influenza, injectable, quadrivalent 12/28/2018,0 03/24/2018 Influenza, injectable, quadr ivalent, preservative free 11/23/2021 Influenza, seasonal, injectable 12/28/2018,03/24,12/18/2016 Moderna COVID-19 Vaccine (Re d Cap) 12+ years 06/21/2021 PPD Skin Test (TB Skin Test) 04/20/2003 [employer] COVID-19 Vac cine (Purple Cap) 12+ 06/21/2021,07/10/2020,06/19/2020 [...] 09/08/2023 Sigmoidoscopy 09/08/2023 [facility]-Colorectal Cancer Screening 09/08/2023 [id number] Vaccine ( season) 2024 06/21/2021, 06/21/2021, 07/10/2020, [...] complete this topic Insurance MEME Care Teams Extrusion Press Supervisor Relationship Specialty Start Date End Date Natasha Nick PA [address] [place] [id number] PCP - General 05/22/22
--- OUTSIDE RECORDS SUMMARY | 2025-01-05 08:15 | XMS_ITS | Encounter Summary ---
Author Organization [employer] ([place], [place], [place], [place], [place]) Address [address] [place] [address] Care Team Providers Care Gi Technician Name Role Phone Pancho Lancaster MD Primary Care Provider [phone] Encounter Details Date Type Department Care Team (Latest Contact Info) Description 11/07/2024 Travel Social History Tobacco Use Types Packs/Day [...] Date Evelio rded Speak language other than Vietnamese at home Not on file 03/08/2023 Want [...] on filedocumented in this encounter Care Teams Gi Technician Relationship Specialty Start Date End Date Pancho Lancaster MD [address] [place] [address] [address] PCP - General Family Medicine 12/11/22 documented as of this encounter
== END ==
LOC: SL 07:41
PROVIDERS: PCP Family Medicine; Visit Provider Family Medicine
DX: R06.83 Snoring (principal); R53.83 Other fatigue
CPT/HCPCS: G0399